=== PATIENT | female | born 1965 | race Caucasian/White ===

== ENCOUNTER 2018-12-25 22:06 | Emergency (ER) | payer OTHER ==
--- OUTSIDE RECORDS SUMMARY | 2018-12-25 22:08 | XMS REPORT | Continuity of Care Document ---
:1965 Author Organization Interface Problems Problem Status Onset Classification Date Comments Source Date Reported M54.12 - Active MH OPID "RADICULOPATHY 6 [facility] , CERVICAL [facility] REGION Foot-drop<sup> Active Problem 06/02/2016 Data migrated MH OPID 1</sup> 5 from [facility] Centricity on [facility] 04/04/15. Low back Active Problem 06/02/2016 Data migrated MH OPID pain<sup>2</granados 5 from [facility] p> Centricity on [facility] 04/04/15. Lumbar Active Problem 06/02/2016 Data migrated MH OPID radiculopathy< 5 from [facility] sup>3</sup> Centricity on [facility] 04/04/15. Tobacco Active Problem 06/02/2016 Data migrated MH OPID dependence 5 from [facility] syndrome<sup>4 Centricity on [facility] </sup> 04/04/15. Medications Medication Details Route Status Patient Ordering Order Source Instructions Provider Date Allergies, Adverse Reactions, Alerts Substance Category Reaction Severity Reaction Status Date Comments Source type Reported Immunizations Immunization Date Given Site Status Last Updated Comments Source Results Order Results Value Reference Date Interpretation Comments Source Name Range Spine Spine MRI CERVICAL SPINE WITHOUT CONTRAST 05/30 - OPID cervical cervical /2015 - [facility] contrast contrast MRI MRI TECHNIQUE: Multiplanar multisequence imaging of the cervical spine was performed without administration of intravenous gadolinium. Read by: Jono Harry MD Dictated Date/time: 05/31/16 07:50 Electronically Signed by: Jono Harry MD 05/31/16 09:57 FINAL REPORT COMPARISON: No prior exam. FINDINGS: Multilevel disc desiccation is seen. C1-C2 levels normal. C2-C3: Unremarkable. C3-C4: 1 mm disc bulge is seen without central canal stenosis. Left foraminal osteophytes are present with moderate left foraminal stenosis. C4-C5: Approximately 2 mm right asymmetric posterior disc osteophyte complex is seen, contacting the anterior cord margin without significant canal stenosis. Mild right facet osteoarthritis and right fo raminal osteophytes are present with moderate to severe right foraminal stenosis. C5-C6: 2.7 mm grade 1 retrolisthesis and 2 mm disc osteophyte complex with mild central canal stenosis. No cord indentation. Bilateral foraminal osteophytes and uncovertebral joint arthrosis with severe bilateral foraminal stenosis. C6-C7: 3.6 mm posterior disc osteophyte complex with mild central canal stenosis. No cord indentation. Severe bilateral foraminal stenosis. C7-T1: Unremarkable. The cervical cord signal is unremarkable without MRI evidence of myelomalacia. Left thyroid lobe 1.8 cm T2-weighted hyperintense signal lesion is present. IMPRESSION: 1. Multilevel disc degenerative disease and spondylosis. 2. Multilevel mild central canal stenosis. No cord indentation is identified. Normal cervical cord signal. 3. C3-C4 moderate left foraminal stenosis. C4-C5 moderate to severe right foraminal stenosis. C5-C6 and C6-C7 severe bilateral foraminal stenosis. 4. Left thyroid lobe 1.8 cm lesion. Thyroid ultrasound is recommended for further assessment. Spine Spine MRI of the spine without and with contrast 05/14 - [facility] lumbar lumbar /2016 - [facility] w/ w/ City contrast contrast MRI MRI COMPARISON: 01/11/2015 MRI exam. Read by: Jono Harry MD Dictated Date/time: 05/14/16 13:23 Electronically Signed by: Jono Harry MD 05/14/16 14:41 FINAL REPORT TECHNIQUE: Sagittal T1, sagittal T2 with fat saturation, axial T1 and axial T2 images were obtained. Intravenous gadolinium was given. FINDINGS: The paravertebral soft tissues are normal. The conus medullaris terminates at the L1 level. Stable mild dextrocurvature. T11-T12 stable disc narrowing and right paracentral disc osteophyte complex with protrusion measuring 3 mm is stable with mild central canal stenosis. No significant mass effect on the spinal cord. T12-L1: Unremarkable. L1-L2: Unremarkable. L2-L3: No central canal stenosis. Minimal right foraminal stenosis due to disc bulge encroachment. L3-L4: Stable left subarticular recess and foraminal disc protrusion measuring 5 mm AP dimension with left lateral recess stenosis and mass effect on the left L4 descending nerve root. Mild central slava l stenosis is present. Stable moderate to severe left foraminal stenosis. Stable moderate disc desiccation and disc narrowing. L4-L5: Stable moderate disc desiccation and disc narrowing. Right laminotomy changes are present without pseudomeningocele. Stable right asymmetric posterior disc osteophyte complex measuring 4.7 mm AP dimension is seen with mild right lateral recess stenosis and minimal mass effect on the right L5 descending nerve root. Stable moderate to severe right foraminal stenosis. Minimal right lateral epidura l enhancement due to granulation tissue is seen without mass effect. L5-S1: Unremarkable. IMPRESSION: 1. Stable L3-L4 and L4-L5 disc degenerative disease with respective lateral recess stenosis and mass effect on the left L4 and right L5 descending nerve roots, and corresponding moderate to severe foraminal stenosis. 2. Stable L4-L5 postsurgical changes. Stable T11-T12 right paracentral disc osteophyte complex. Vital Signs Vital Sign Value Date Comments Source Encounters Location Location Encounter Encounter Reason Attending ADM DC Status Source Details Type Number For Provider Date Date Visit [facility] Outpt Diag [id number] [place] 01/11 01/12 [facility] /2014 [facility] Outpt Diag [id number] [place] 05/14 05/15 [facility] /2015 [facility] Outpt Diag [id number] [place] 05/30 05/31 [facility] /2015 [facility] Procedures Procedure Code Date Perfomer Comments Source
--- OUTSIDE RECORDS SUMMARY | 2018-12-25 22:09 | XMS REPORT ---
:1965 Author Organization [facility] Address [address] [place], [place] [address]duran Jamil [address] [place] [id number] Care Team Providers Name Role Phone Unavailable Unavailable Unavailable Problems This patient has no known problems. Allergies, Adverse Reactions, Alerts This patient has no known allergies or adverse reactions. Medications This patient has no known medications.
--- NOTE | 2018-12-25 22:49 | RAD REPORT ---
EXAM DESCRIPTION: Cathy Single View12/25/2018 10:41 pm CLINICAL HISTORY: Chest pain COMPARISON: 2017 FINDINGS: The lungs appear clear of acute infiltrate. The heart is normal size. Right hemidiaphragm remains elevated IMPRESSION: No acute abnormalities displayed
[2018-12-25 23:32] LABS: Absolute Lymphocytes (CBC) 3.2 K/uL (0.7-4.9); Absolute Monocytes 0.4 K/uL (0.1-1.3); Absolute Neutrophil 3.5 K/uL (1.8-8.0); Basophils % 0.7 % (0-1.3); Eosinophils % 2.5 % (0-4.4); Hematocrit 43.2 % (36.0-45.0); Lymphocytes % 43.5 % (15.3-44.8); MPV 9.4 fL (7.6-11.3); RBC Red Blood Cell Count 5.12 M/uL (3.86-4.86)
[2018-12-25 23:37] LABS: Protime INR 1.02
[2018-12-25 23:53] LABS: ALT/SGPT 36 U/L (12-78); AST/SGOT 23 U/L (15-37); Albumin 3.5 g/dL (3.4-5.0); Alkaline Phosphatase 115 U/L (45-117); BUN Blood Urea Nitrogen 25 mg/dL (7-18); Bicarbonate 29 mmol/L (21-32); Bilirubin Direct 0.1 mg/dL (0-0.2); Bilirubin Total 0.4 mg/dL (0.2-1.0); Glucose Level 166 mg/dL (74-106); Magnesium 2.1 mg/dL (1.8-2.4); NT PRO-BNP 63 pg/mL (<125); Protein, Total 7.4 g/dL (6.4-8.2); Sodium Level 136 mmol/L (136-145); Troponin (Emerg Dept Use Only) < 0.02 ng/mL (0.0-0.045)
[2018-12-26] MEDS ORDERED: NA CHLORIDE 0.9% 1,000 ML ONE ×2 (00:02→00:48)
--- NOTE | 2018-12-26 02:25 | ER ---
Nurse's Notes [facility] [place], [place] Name: Jada Mitchell Age: 53 yrs Sex: Female : 1965 Arrival Date: 12/25/2018 Time: 22:15 Bed 25 Private MD: Diagnosis: Dehydration;Syncope and collapse Presentation: 12/25 22:16 Presenting complaint: EMS states: patient had syncopal episode, was lying on the ground mg2 when we reached the scene. BP was 80/ 60 initially and went up to 120/70, she was pale, diaphoretic, weak, reported 5 episodes of vomiting and diarrhea with abdominal and back pain for several days. BGL -158 mg/dl. Transition of care: patient was not received from another setting of care. Onset of symptoms was December 2018. Risk Assessment: Do you want to hurt yourself or someone else? Patient reports no desire to harm self or others. Initial Sepsis Screen: Does the patient meet any 2 criteria? No. Patient's initial sepsis screen is negative. Does the patient have a suspected source of infection? No. Patient's initial sepsis screen is negative. Care prior to arrival: None. 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 - Post-menopause mg2 Historical: - Allergies: 22:23 No Known Allergies; mg2 - Home Meds: 12/26 00:05 Ativan 2 mg Oral tab [Active]; Diflucan 100 mg Oral tab [Active]; ls4 hydrocodone-acetaminophen 10-325 mg/15 mL(15 mL) Oral soln [Active]; oxycodone 15 mg oral tab 1 tab 3 x per day [Active]; Lyrica 150 mg Oral 3 times per day [Active]; montelukast 10 mg oral tab 1 tab once daily [Active]; tizanidine 4 mg oral cap 1 cap 2 x per day [Active]; Xarelto 20 mg Oral tab once daily [Active]; Requip 2 mg oral tab 1 tab bedtime [Active]; Zofran (as hydrochloride) 4 mg oral tab as needed [Active]; Lamisil 250 mg oral tab 1 tab once daily [Active]; Magnesium Oxide Oral as needed [Active]; Tresiba FlexTouch U-100 100 unit/mL (3 mL) subcutaneous inpn 60 units daily [Active]; promethazine 25 mg Oral tab 1 tab every 6 hours [Active]; metoprolol tartrate 50 mg Oral tab 1 tab 2 times per day [Active]; alpha lipoic acid 200 mg oral tab twice a day [Active]; Symbicort 160-4.5 mcg/actuation inhalation HFAA 2 times per day [Active]; ProAir HFA 90 mcg/actuation inhalation HFAA 1 puff 3 times prn [Active]; Novolog Fast acting Sub-Q [Active]; - PMHx: 12/25 22:23 Diabetes - IDDM; DVT; pulmonary embolus; e coli; Hypertension; mg2 - PSHx: 22:23 back, leg, knee, ankle surgery; mg2 - Immunization history:: Flu vaccine is up to date. - Social history:: Smoking status: Patient uses tobacco products, smokes one-half pack cigarettes per day, Patient/guardian denies using alcohol, street drugs, IV drugs. - Ebola Screening: : No symptoms or risks identified at this time. Screenin:34 Abuse screen: Denies threats or abuse. Denies injuries from another. Nutritional ls4 screening: No deficits noted. Tuberculosis screening: No symptoms or risk factors identified. Fall Risk None identified. Assessment: 22:34 General: Appears in no apparent distress. Behavior is calm, cooperative. ls4 Cardiovascular: Reports fatigue, nausea, syncope. Respiratory: Airway is patent Respiratory effort is even, unlabored. Derm: Skin is clammy, Skin is pale. 12/26 00:07 Reassessment: Patient and/or family updated on plan of care and expected duration. Pain ls4 level reassessed. Patient is alert, oriented x 3, equal unlabored respirations, skin warm/dry/pink. 01:42 Reassessment: patient sleeping on bed. mg2 02:29 Reassessment: Patient appears in no apparent distress at this time. Patient and/or wh family updated on plan of care and expected duration. Pain level reassessed. Patient is alert, oriented x 3, equal unlabored respirations, skin warm/dry/pink. Pain: Denies pain. Vital Signs: 12/25 22:18 BP 135 / 80; Pulse 80; Resp 18; Temp 98.7; Pulse Ox 100% on R/A; Weight 74.84 kg; mg2 Height 5 ft. 10 in. (177.80 cm); Pain 8/10; 23:30 BP 133 / 83 Supine; Pulse 78; Pulse Ox 99% on R/A; ls4 23:33 BP 79 / 55; Pulse 85; Resp 20; Pulse Ox 99% on R/A; ls4 0518 00:06 BP 135 / 88; Pulse 84; Resp 16; Pulse Ox 95% on R/A; ls4 00:27 BP 138 / 80; Pulse 81; Resp 18; Pulse Ox 95% on R/A; mg2 01:49 BP 138 / 75 LA Supine (auto/reg); Pulse 81; Resp 18; Pulse Ox 98% on R/A; mg2 01:49 BP 125 / 75 LA Sitting (auto/reg); Pulse 84; Resp 18; Pulse Ox 98% on R/A; mg2 01:49 BP 89 / 60 LA Standing (auto/reg); Pulse 100; Resp 18; Pulse Ox 100% on R/A; mg2 02:20 BP 99 / 67 Standing; Pulse 100; Resp 18; Pulse Ox 98% on R/A; wh 02:52 BP 109 / 72 Standing; Pulse 96; Resp 18; Pulse Ox 98% on R/A; wh 12/25 22:18 Body Mass Index 23.67 (74.84 kg, 177.80 cm) mg2 ED Course: 12/25 22:15 Patient arrived in ED. mg2 22:16 EKG done, by ED staff. ls4 22:18 Triage completed. mg2 22:20 Ayleen Ortega, RN is Primary Nurse. ls4 22:33 Patient has correct armband on for positive identification. Placed in gown. Bed in low ls4 position. Call light in reach. Side rails up X 1. residential monitor on. Pulse ox on. NIBP on. Verbal reassurance given. 22:36 No provider procedures requiring assistance completed. ls4 22:36 Arm band placed on. ls4 22:41 XRAY Chest (1 view) In Process Unspecified. EDMS 22:58 Vivek Rutherford NP is PHCP. pm1 22:58 Jovanni Braswell MD is Attending Physician. pm1 23:27 Initial lab(s) drawn, by nm, sent to lab. Flu and/or RSV swab sent to lab. Strep swab lt1 sent to lab. Inserted saline lock: 22 gauge in right antecubital area, using aseptic technique. 23:29 Strep Sent. lt1 23:29 Flu Sent. lt1 23:30 ETOH Level Sent. lt1 23:53 CT completed. Patient tolerated procedure well. Patient moved to CT via stretcher. Patient moved back from CT. 12/26 00:01 CT Head Brain wo Cont In Process Unspecified. EDDE 02:54 IV discontinued, intact, bleeding controlled, No redness/swelling at site. Administered Medications: 12/25 23:55 Drug: NS 0.9% 1000 ml Route: IV; Rate: 1000 ml; Site: right antecubital; mg2 12/26 02:54 Follow up: Response: No adverse reaction; IV Status: Completed infusion 00:39 Drug: NS 0.9% 1000 ml Route: IV; Rate: 1000 ml; Site: right antecubital; mg2 02:54 Follow up: Response: No adverse reaction; IV Status: Completed infusion Outcome: 02:24 Discharge ordered by MD. pm1 02:53 Discharged to home ambulatory, with family. 02:53 Condition: good 02:53 Discharge instructions given to patient, Instructed on discharge instructions, follow up and referral plans. POC Dehydration Demonstrated understanding of instructions, follow-up care, POC 02:55 Patient left the ED. Signatures: Dispatcher [employer] EDMS Chano Smith Vivek Rutherford, BAKELITE MOLDER BAKELITE MOLDER pm1 Murtaza Tiwari Hever Ortega RN RN mg2 Ayleen Ortega RN RN ls4 Cely Still lt1 Corrections: (The following items were deleted from the chart) 02:52 02:52 BP 109 / 72; Pulse 96bpm; Resp 18bpm; Pulse Ox 98% RA; [facility]
--- NOTE | 2018-12-26 02:25 | EDPHYS ---
Physician Documentation [facility] Name: Jada Mitchell Age: 53 yrs Sex: Female : 1965 Arrival Date: 12/25/2018 Time: 22:15 Bed 25 Private MD: ED Physician Jovanni Braswell HPI: 12/25 23:05 This 53 yrs old Female presents to ER via EMS with complaints of Syncope. pm1 23:05 The patient has experienced syncope, collapsed. Onset: The symptoms/episode pm1 began/occurred just prior to arrival. Duration: The patient has had multiple episodes, two times at home prior to arrival. Context: the episode(s) was witnessed, by family, daughter, occurred at home, occurred while the patient was walking, Just prior to the episode the patient experienced no apparent symptoms. Associated injury: The patient did not suffer any apparent associated injury. Associated signs and symptoms: Pertinent negatives: abdominal pain, diarrhea, dizziness, headache, numbness, tingling, vomiting. The patient has not recently seen a physician. Patient has felt flu like symptoms for the past 2-3 days and reports decreased appetite and fluid consumption. 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-menopause mg2 Historical: - Allergies: 22:23 No Known Allergies; mg2 - Home Meds: 12/26 00:05 Ativan 2 mg Oral tab [Active]; Diflucan 100 mg Oral tab [Active]; ls4 hydrocodone-acetaminophen 10-325 mg/15 mL(15 mL) Oral soln [Active]; oxycodone 15 mg oral tab 1 tab 3 x per day [Active]; Lyrica 150 mg Oral 3 times per day [Active]; montelukast 10 mg oral tab 1 tab once daily [Active]; tizanidine 4 mg oral cap 1 cap 2 x per day [Active]; Xarelto 20 mg Oral tab once daily [Active]; Requip 2 mg oral tab 1 tab bedtime [Active]; Zofran (as hydrochloride) 4 mg oral tab as needed [Active]; Lamisil 250 mg oral tab 1 tab once daily [Active]; Magnesium Oxide Oral as needed [Active]; Tresiba FlexTouch U-100 100 unit/mL (3 mL) subcutaneous inpn 60 units daily [Active]; promethazine 25 mg Oral tab 1 tab every 6 hours [Active]; metoprolol tartrate 50 mg Oral tab 1 tab 2 times per day [Active]; alpha lipoic acid 200 mg oral tab twice a day [Active]; Symbicort 160-4.5 mcg/actuation inhalation HFAA 2 times per day [Active]; ProAir HFA 90 mcg/actuation inhalation HFAA 1 puff 3 times prn [Active]; Novolog Fast acting Sub-Q [Active]; - PMHx: 12/25 22:23 Diabetes - IDDM; DVT; pulmonary embolus; e coli; Hypertension; mg2 - PSHx: 22:23 back, leg, knee, ankle surgery; mg2 - Immunization history:: Flu vaccine is up to date. - Social history:: Smoking status: Patient uses tobacco products, smokes one-half pack cigarettes per day, Patient/guardian denies using alcohol, street drugs, IV drugs. - Ebola Screening: : No symptoms or risks identified at this time. ROS: 23:05 Constitutional: Negative for fever, chills, and weight loss, Eyes: Negative for injury, pm1 pain, redness, and discharge, ENT: Negative for injury, pain, and discharge, Neck: Negative for injury, pain, and swelling, Cardiovascular: Negative for chest pain, palpitations, and edema, Respiratory: Negative for shortness of breath, cough, wheezing, and pleuritic chest pain, Abdomen/GI: Negative for abdominal pain, nausea, vomiting, diarrhea, and constipation, Back: Negative for injury and pain, : Negative for injury, bleeding, discharge, and swelling, MS/Extremity: Negative for injury and deformity, Skin: Negative for injury, rash, and discoloration. 23:05 Neuro: Positive for syncope, Negative for headache, numbness, weakness. Exam: 23:05 Abdomen/GI: Inspection: abdomen appears normal, Bowel sounds: normal, Palpation: pm1 abdomen is soft and non-tender. 23:05 Constitutional: This is a well developed, well nourished patient who is awake, alert, and in no acute distress. Head/Face: Normocephalic, atraumatic. Eyes: Pupils equal round and reactive to light, extra-ocular motions intact. Lids and lashes normal. Conjunctiva and sclera are non-icteric and not injected. Cornea within normal limits. Periorbital areas with no swelling, redness, or edema. ENT: Nares patent. No nasal discharge, no septal abnormalities noted. Tympanic membranes are normal and external auditory canals are clear. Oropharynx with no redness, swelling, or masses, exudates, or evidence of obstruction, uvula midline. Mucous membranes moist. Neck: Trachea midline, no thyromegaly or masses palpated, and no cervical lymphadenopathy. Supple, full range of motion without nuchal rigidity, or vertebral point tenderness. No Meningismus. Chest/axilla: Normal chest wall appearance and motion. Nontender with no deformity. No lesions are appreciated. Cardiovascular: Regular rate and rhythm with a normal S1 and S2. No gallops, murmurs, or rubs. Normal PMI, no JVD. No pulse deficits. Respiratory: Lungs have equal breath sounds bilaterally, clear to auscultation and percussion. No rales, rhonchi or wheezes noted. No increased work of breathing, no retractions or nasal flaring. Abdomen/GI: Soft, non-tender, with normal bowel sounds. No distension or tympany. No guarding or rebound. No evidence of tenderness throughout. Back: No spinal tenderness. No costovertebral tenderness. Full range of motion. Skin: Warm, dry with normal turgor. Normal color with no rashes, no lesions, and no evidence of cellulitis. MS/ Extremity: Pulses equal, no cyanosis. Neurovascular intact. Full, normal range of motion. 23:05 Neuro: Orientation: is normal, Motor: is normal, moves all fours, strength is normal, strength is 5/5 in all extremities. Vital Signs: 22:18 BP 135 / 80; Pulse 80; Resp 18; Temp 98.7; Pulse Ox 100% on R/A; Weight 74.84 kg; mg2 Height 5 ft. 10 in. (177.80 cm); Pain 8/10; 23:30 BP 133 / 83 Supine; Pulse 78; Pulse Ox 99% on R/A; ls4 23:33 BP 79 / 55; Pulse 85; Resp 20; Pulse Ox 99% on R/A; ls4 05 00:06 BP 135 / 88; Pulse 84; Resp 16; Pulse Ox 95% on R/A; ls4 00:27 BP 138 / 80; Pulse 81; Resp 18; Pulse Ox 95% on R/A; mg2 01:49 BP 138 / 75 LA Supine (auto/reg); Pulse 81; Resp 18; Pulse Ox 98% on R/A; mg2 01:49 BP 125 / 75 LA Sitting (auto/reg); Pulse 84; Resp 18; Pulse Ox 98% on R/A; mg2 01:49 BP 89 / 60 LA Standing (auto/reg); Pulse 100; Resp 18; Pulse Ox 100% on R/A; mg2 02:20 BP 99 / 67 Standing; Pulse 100; Resp 18; Pulse Ox 98% on R/A; wh 02:52 BP 109 / 72 Standing; Pulse 96; Resp 18; Pulse Ox 98% on R/A; wh 12/25 22:18 Body Mass Index 23.67 (74.84 kg, 177.80 cm) mg2 MDM: 12/25 22:58 Patient medically screened. pm1 12/26 02:21 Data reviewed: vital signs. Data interpreted: Pulse oximetry: on room air is 100 %. pm1 Interpretation: normal. Refusal of service: The patient/guardian displays adequate decision making capability and despite a detailed discussion of alternatives, benefits, risks, and consequences refuses: Patient does not want to complete the second liter of fluids. Patient's orthostatic blood pressure have improved but patient needs additional fluids and repeat blood pressure readings to insure adequate hydration. Patient wants to go home and drink fluids. 12/25 22:33 Order name: CBC with Diff [facility] 12/25 22:33 Order name: Basic Metabolic Panel [facility] 12/25 22:33 Order name: LFT's; Complete Time: 00:00 [facility] 12/25 22:33 Order name: Magnesium; Complete Time: 00:00 [facility] 12/25 22:33 Order name: NT PRO-BNP; Complete Time: 00:00 [facility] 12/25 22:33 Order name: PT-INR; Complete Time: 23:50 [facility] 12/25 22:33 Order name: Troponin (emerg Dept Use Only); Complete Time: 00:00 [facility] 12/25 22:33 Order name: CBC with Automated Diff; Complete Time: 23:50 EDMS 12/25 22:33 Order name: Basic Metabolic Panel; Complete Time: 00:00 EDMS 12/25 23:15 Order name: ETOH Level; Complete Time: 00:00 pm1 12/25 23:15 Order name: Flu; Complete Time: 00:00 pm12/25 22:33 Order name: XRAY Chest (1 view); Complete Time: 23:15 [facility] 12/25 22:33 Order name: EKG; Complete Time: 22:34 [facility] 12/25 22:33 Order name: Cardiac monitoring; Complete Time: 22:33 [facility] 12/25 22:33 Order name: EKG - Nurse/Tech; Complete Time: :33 [facility] 12/25 22:33 Order name: IV Saline Lock; Complete Time: 23:30 [facility] 12/25 22:33 Order name: Labs collected and sent; Complete Time: 23:30 [facility] 12/25 22:33 Order name: O2 Per Protocol; Complete Time: :33 [facility] 12/25 22:33 Order name: O2 Sat Monitoring; Complete Time: 22:33 [facility] 12/25 23:15 Order name: CT Head Brain wo Cont 12/25 23:15 Order name: Strep; Complete Time: 00:00 12/25 23:15 Order name: [place] Screen Profile; Complete Time: 00:00 12/25 23:15 Order name: Orthostatic Blood Pressure; Complete Time: 23:31 pm12/25 23:52 Order name: Throat Culture EDMS Administered Medications: 12/25 23:55 Drug: NS 0.9% 1000 ml Route: IV; Rate: 1000 ml; Site: right antecubital; mg2 12/26 02:54 Follow up: Response: No adverse reaction; IV Status: Completed infusion 00:39 Drug: NS 0.9% 1000 ml Route: IV; Rate: 1000 ml; Site: right antecubital; mg2 02:54 Follow up: Response: No adverse reaction; IV Status: Completed infusion Disposition: 12/26/18 02:24 Discharged to Home. Impression: Dehydration, Syncope and collapse. - Condition is Stable. - Discharge Instructions: Dehydration, Adult, Syncope, Rehydration, Adult. - Medication Reconciliation Form, Thank You Letter, Antibiotic Education, Prescription Opioid Use form. - Follow up: Emergency Department; When: As needed; Reason: Worsening of condition. Follow up: Private Physician; When: 2 - 3 days; Reason: Recheck today's complaints, Continuance of care, Re-evaluation by your physician. - Problem is new. - Symptoms have improved. Addendum: 12/28/2018 06:43 Co-signature as Attending Physician, Jovanni Braswell MD I agree with the assessment and t w4 plan of care. Signatures: Dispatcher [employer] [facility] SangeetaVivek, FASHION COORDINATOR FASHION COORDINATOR pm1 Murtaza Tiwari Jovanni Braswell MD MD tw4 Hever Ortega, RN RN mg2 Ayleen Ortega RN RN ls4 Corrections: (The following items were deleted from the chart) 12/25 23:32 22:34 CBC+H.LAB.BRZ ordered. [facility] 12/26 02:55 02:24 12/26/2018 02:24 Discharged to Home. Impression: Dehydration; Syncope and wh collapse. Condition is Stable. Forms are Medication Reconciliation Form, Thank You Letter, Antibiotic Education, Prescription Opioid Use. Follow up: Emergency Department; When: As needed; Reason: Worsening of condition. Follow up: Private Physician; When: 2 - 3 days; Reason: Recheck today's complaints, Continuance of care, Re-evaluation by your physician. Problem is new. Symptoms have improved. pm1
[2018-12-26 05:03] VITALS: TEMP 98.7
[2018-12-26 05:11] VITALS: O2SAT 98
[2018-12-26 05:12] VITALS: BP 109/72
--- NOTE | 2018-12-26 14:25 | EKG ---
Test Date: 2018-12-25 Test Time: 22:16:23 Stock Preparation Operator: ANNABELLE MEASUREMENT RESULTS: Intervals: Rate: 77 DE: 182 QRSD: 118 QT: 402 QTc: 454 [place]: P: 60 DE: 182 QRS: 28 T: 60 INTERPRETIVE STATEMENTS: Normal sinus rhythm Possible Left atrial enlargement Incomplete right bundle branch block Anterior infarct, age undetermined Abnormal ECG Compared to ECG 01/28/2017 06:40:08 No significant changes Electronically Signed On 12-26-18 14:24:57 CDT by Martin Maguire
--- NOTE | 2018-12-28 13:37 | RAD REPORT ---
EXAM DESCRIPTION: CT - Head Brain Wo Cont - 12/26/2018 4:02 am CLINICAL HISTORY: 53 years Female, SYNCOPE TECHNIQUE: 5 mm axial images were obtained along with 3 mm reformatted coronal and sagittal images. This exam was performed according to our departmental dose-optimization program, which includes autom ated exposure control, adjustment of the mA and/or kV according to patient size and/or use of iterati ve reconstruction technique. Patient size and/or use of iterative reconstruction technique. COMPARISON: None. FINDINGS: No acute abnormal extracerebral fluid collections are demonstrated. The cortical sulci, ventricles, and cisterns are within normal limits. There are no areas of altered attenuation identified to suggest acute hemorrhage, infarction, or mass lesion. The visualized portions of the paranasal sinuses and mastoid air cells are clear. IMPRESSION: 1. Normal study. Electronically signed by: Fredo Hale MD 12/26/2018 12:02 AM CDT Due to temporary technical issues with the PACS/Fluency reporting system, reports are being signed by the in house radiologist as a courtesy to ensure prompt reporting. The interpreting radiologist is f ully responsible for the content of the report.
== END 2018-12-26 02:55 | disposition home or self-care (01) ==
LOC: ER 22:06
DX: E86.0 Dehydration (principal); I10 Essential (primary) hypertension; F17.210 Nicotine dependence, cigarettes, uncomplicated; E11.9 Type 2 diabetes mellitus without complications; Z79.01 Long term (current) use of anticoagulants; Z79.4 Long term (current) use of insulin; Z86.718 Personal history of other venous thrombosis and embolism
CPT/HCPCS: 96361; 93005; 87070; 85025; 80048; 36415; 80320; 83735; 86308; 85610; 80076; 87081; 84484; 83880; 87804 ×2; 70450; 71045; 96360; 99285; J7030

== ENCOUNTER 2020-05-03 03:34 | Inpatient (IN) | payer OTHER, BC ==
--- OUTSIDE RECORDS SUMMARY | 2020-05-03 03:37 | XMS REPORT | Continuity of Care Document ---
:1965 Author Organization [employer] Care Team Providers Name Role Phone [employer] Unavailable Un available Problems Problem Status Onset Classification Date Comments Sourc e Date Reported M54.12 - Active 05/21/20 OPID "RADICULOPATHY, 16 Dominic rial CERVICAL REGION [facility] Foot-drop Active 01/31/20 Problem 06/02/2016 Data migrated OP ID (finding) 15 from [facility] on [facility] 04/04/15. Low back pain Active 01/31/20 Problem 06/02/2016 Data migrated M H OPID (disorder) 15 from [facility] on [facility] 04/04/15. Lumbar Active 01/31/20 Problem 06/02/2016 [facility]. Tobacco Active 01/31/20 Problem 06/02/2016 Data migrated OP ID dependence 15 from [facility] 04/04/15. Medications No Data Provided for This Section Allergies, Adverse Reactions, Alerts No Known Medication Allergies Immunizations No Data Provided for This Section Results No Data Provided for This Section Pathology Reports No Data Provided for This Section Diagnostic Reports Report Value Date Source Spine cervical wo MRI CERVICAL SPINE WITHOUT CONTRAST 05/30/2016 [employer] contrast MRI TECHNIQUE: Multiplanar multi sequence imaging of the cervical spine was performed without administration of intravenous gadolinium. [place] COMPARISON: No prior exam. FINDINGS: Multilevel disc desiccation is seen. C1-C2 levels normal. C2-C3: Unremarkable. C3-C4: 1 mm disc bulge is se en without central canal stenosis. Left foraminal osteophytes are present with moderate left foraminal stenosis. C4-C5: Approximately 2 mm ri ght asymmetric posterior disc osteophyte complex is seen, contacting the anterior cord margin without significant canal stenosis. Mild right facet osteoarthritis and right fo raminal osteophytes are pres ent with moderate to severe right foraminal stenosis. C5-C6: 2.7 mm grade 1 retrol isthesis and 2 mm disc osteophyte complex with [...] myelomalacia. Left thyroid lobe 1.8 cm T2-weighted hyperintens e signal lesion is present. IMPRESSION: 1. Multilevel disc degenerative disease and spon dylosis. 2. Multilevel mild central c anal stenosis. No cord indentation is identified. Normal cervical cord signal. 3. C3-C4 moderate left estephanie inal stenosis. C4-C5 moderate to severe right foraminal stenosis. C5-C6 and C6-C7 severe bilateral foraminal stenosis. 4. Left thyroid lobe 1.8 cm lesion. Thyroid ultrasound is recommended for further assessment. Spine lumbar w/wo MRI of the spine without and with contrast 11/2015 [facility] contrast MRI COMPARISON: 01/11/2015 MRI exam. [place] TECHNIQUE: Sagittal T1, sagi ttal T2 with fat saturation, axial T1 and axial T2 images were obtained. Intravenous gadolinium was given. FINDINGS: The paravertebral soft tissues are normal. The conus medullaris terminates at the L1 level. Stable mild dextrocurvature. T11-T12 stable disc narrowin g and right paracentral disc osteophyte complex with protrusion measuring 3 mm is stable with mild central canal stenosis. No significant mass effect on the spinal cord. T12-L1: Unremarkable. L1-L2: Unremarkable. L2-L3: No central canal sten osis. Minimal right foraminal stenosis due to disc bulge encroachment. L3-L4: Stable left subarticu lar recess and foraminal disc protrusion measuring 5 mm AP dimension with left lateral recess stenosis and mass effect on the left L4 descending nerve root. Mild central slava l stenosis is present. Stabl e moderate to severe left foraminal stenosis. Stable [...] Unremarkable. IMPRESSION: 1. Stable L3-L4 and L4-L5 di sc degenerative disease with respective lateral recess stenosis and mass effect on the left L4 and right L5 descending nerve roots, and corresponding moderate to severe foraminal stenosis. 2. Stable L4-L5 postsurgical changes. Stable T11-T12 right paracentral disc osteophyte complex. Consultation Notes No Data Provided for This Section Discharge Summaries No Data Provided for This Section History and Physicals No Data Provided for This Section Vital Signs No Data Provided for This Section Encounters Location Location Encounter Encounter Reason Attending ADM RI Stat Source Details Type Number For Provider Date Date Visit [facility] Outpt Diag [id number] [place] 01/11 01/12 [facility] /2014 [facility] Outpt Diag [id number] [place] 05/14 05/15 [facility] /2015 [facility] Outpt Diag [id number] [place] 05/30 05/31 [facility] Outpatient Services [facility] /2015 [facility] Procedures No Data Provided for This Section Assessment and Plan No Data Provided for This Section Plan of Care No Data Provided for This Section Social History Social History Date Source No data available for this 05/31/2016 OPID [facility] section Family History No Data Provided for This Section Advance Directives No Data Provided for This Section Functional Status No Data Provided for This Section
--- OUTSIDE RECORDS SUMMARY | 2020-05-03 03:37 | XMS REPORT | Continuity of Care Document ---
:1965 Author Organization [facility] t Address [address] [place] [address] Care Team Providers Name Role Phone Harlan Butt Jr Attending Clinician Problems Condition Condition Condition Status Onset Resolution Last Treating Co mments Source Name Details Category Date Date Treatment Clinician Date M54.12 - Diagnosis Active 2015-082016-05-30 M emoria "RADICULOP 0-11 18:25:00 l ATHY, M54.12 - 00:01: [place] CERVICAL "RADICULOP 00 REGION ATHY, CERVICAL REGION Active 05/21/2016 [facility] Foot-drop Problem Active 2016-06-02 Me moria (finding) 01-30 00:59:34 l 00:00: Epi Foot-drop 00 (finding) Active 01/30/2015 Problem 06/02/2016 Data migrated from [facility] on 04/04/15. [facility] Low back Problem Active 2016-06-02 Mem oria pain 01-30 00:59:34 l (disorder) Low back 00:00: He rmann pain 00 (disorder) Active 01/30/2015 Problem 06/02/2016 Data migrated from [facility] on 04/04/15. [facility] Lumbar Problem Active 2016-06-02 Memor ia radiculopa 01-30 00:59:34 l thy Lumbar 00:00: [place] (disorder) radiculopa 00 thy (disorder) Active 01/30/2015 Problem 06/02/2016 Data migrated from [facility] on 04/04/15. [facility] Tobacco Problem Active 2016-06-02 Dominic sameera dependence 01-30 00:59:34 l syndrome Tobacco 00:00: Codie nn (disorder) dependence 00 syndrome (disorder) Active 01/30/2015 Problem 06/02/2016 Data migrated from [facility] on 04/04/15. MELISSA HEIN [facility] Allergies, Adverse Reactions, Alerts This patient has no known allergies or adverse reactions. Social History Social Habit Start Date Stop Date Quantity Comments Source Social History 2016-05-31 2016-05-31 [facility] 04:59:00 04:59:00 Medications This patient has no known medications. Procedures This patient has no known procedures. Encounters Start End Encounter Admission Attending Care Care Encounter Source Date/Time Date/Time Type Type Clinicians Facility Department ID 2016-05-30 2016-05-30 Outpatient Filomena, [id number] 18:14:00 23:59:00 Harlan Boucher [id number] 5.30 2016-05-14 2016-05-14 Outpatient Filomena, [id number] 07:57:00 23:59:00 Harlan Boucher [id number] 5.30 2015-01-11 2015-01-11 Outpatient BHAVESH Butt [id number] 17:11:00 23:59:00 Harlan Boucher 00 Results This patient has no known results.
[2020-05-03 03:57] LABS: Absolute Lymphocytes (CBC) 2.6 K/uL (0.7-4.9); Basophils % 0.8 % (0-1.3); Hematocrit 36.7 % (36.0-45.0); RBC Red Blood Cell Count 4.19 M/uL (3.86-4.86)
[2020-05-03 04:01] LABS: Protime INR 0.86
[2020-05-03] MEDS ORDERED: NA CHLORIDE 0.9% 0 ML ONE (04:02)
[2020-05-03] MEDS ORDERED: ONDANSETRON 4 MG/2 ML VIAL ONE ×2 (04:02→14:25)
[2020-05-03] MEDS ORDERED: NA CHLORIDE 0.9% 2,000 ML ONE (04:08)
[2020-05-03 04:15] LABS: Arterial Blood Carboxyhemoglob 1.1 % (0-1.5); Blood Gas Oxyhemoglobin 94.2 % (94-97); Blood O2 Saturation 96.2 % (92-98.5)
[2020-05-03 04:17] LABS: ALT/SGPT 20 U/L (12-78); AST/SGOT 9 U/L (15-37); Alkaline Phosphatase 131 U/L (45-117); BUN Blood Urea Nitrogen 35 mg/dL (7-18); Bicarbonate 15 mmol/L (21-32); Bilirubin Direct < 0.1 mg/dL (0-0.2); Bilirubin Total 0.4 mg/dL (0.2-1.0); Glucose Level 342 mg/dL (74-106); Magnesium 2.3 mg/dL (1.8-2.4); NT PRO-BNP 145 pg/mL (<125); Potassium 5.2 mmol/L (3.5-5.1); Protein, Total 7.3 g/dL (6.4-8.2); Sodium Level 133 mmol/L (136-145); Troponin (Emerg Dept Use Only) < 0.02 ng/mL (0.0-0.045)
--- NOTE | 2020-05-03 04:28 | ER ---
Nurse's Notes [facility] Name: Jada Navarro Age: 54 yrs Sex: Female : 1965 Arrival Date: 05/03/2020 Time: 03:39 Bed 3 Private MD: Diagnosis: Diabetes mellitus due to underlying condition with ketoacidosis without coma;Weakness;Vomiting;Hyperkalemia;Acute kidney failure-on chronic renal failure Presentation: 05/03 03:40 Chief complaint: EMS states: they were toned out for report of pt with malaise and bb nausea and vomiting x 3 days pt is diabetic she has been taking phenergan and zofran at home for the vomiting, pt also c/o chest pain. Coronavirus screen: At this time, the client does not indicate any symptoms associated with coronavirus-19. Ebola Screen: No symptoms or risks identified at this time. Initial Sepsis Screen: Does the patient meet any 2 criteria? No. Patient's initial sepsis screen is negative. Does the patient have a suspected source of infection? No. Patient's initial sepsis screen is negative. Risk Assessment: Do you want to hurt yourself or someone else? Patient reports no desire to harm self or others. Onset of symptoms was April 30, 2020. Care prior to arrival: Medication(s) given: Normal saline infusion, Nitroglycerin, x 1, zofran 4 mg, IV initiated. 20 GA, in the right antecubital area, Glucose check: 350. 03:40 Method Of Arrival: EMS: [facility] bb 03:40 Acuity: LEE 3 bb Triage Assessment: 03:52 General: Appears uncomfortable, Behavior is listless. Pain: Complains of pain in chest. bb Neuro: Level of Consciousness is awake, alert, obeys commands, Oriented to person, place, time, situation. UNIFORM ATTENDANT: 03:52 LMP N/A - bb Historical: - Allergies: 03:52 No Known Allergies; bb - Home Meds: 03:52 Ativan 2 mg Oral tab 1.5 tab 2 times per day [Active]; metoprolol tartrate 50 mg Oral bb tab 1 tab 2 times per day [Active]; montelukast 10 mg Oral tab 1 tab once daily [Active]; ProAir HFA 90 mcg/actuation inhalation HFAA 1 puff 3 times prn [Active]; Symbicort 160-4.5 mcg/actuation inhalation HFAA 2 times per day [Active]; Novolog Fast acting Sub-Q [Active]; Xarelto 20 mg Oral tab once daily [Active]; Zofran (as hydrochloride) 4 mg Oral tab as needed [Active]; oxycodone 15 mg Oral tab 1 tab every 6 hours [Active]; pregabalin 150 mg Oral 3 times per day [Active]; duloxetine 60 mg oral cpDR 1 cap once daily [Active]; cyclobenzaprine 5 mg Oral tab 1 tab daily [Active]; ropinirole 2 mg oral tab nightly [Active]; atorvastatin 40 mg oral tab 1 tab once daily [Active]; - PMHx: 03:52 Diabetes - IDDM; DVT; e coli; Hypertension; pulmonary embolus; bb - PSHx: 03:52 back, leg, knee, ankle surgery; bb - Immunization history:: Adult Immunizations unknown. - Social history:: Smoking status: Patient reports the use of cigarette tobacco products, denies chronic smoking, but will smoke occasionally, Patient/guardian denies using alcohol, street drugs. - Family history:: not pertinent. Screenin:53 Abuse screen: Denies threats or abuse. Nutritional screening: No deficits noted. bb Tuberculosis screening: No symptoms or risk factors identified. Fall Risk None identified. Vital Signs: 03:40 BP 148 / 87; Pulse 104; Resp 20 S; Temp 98.5(O); Pulse Ox 98% on R/A; Weight 77.11 kg bb (R); Height 5 ft. 10 in. (177.80 cm) (R); 04:00 BP 142 / 89; Pulse 108; Resp 17; Pulse Ox 99% on R/A; rv 05:00 BP 140 / 69; Pulse 119; Resp 14; Pulse Ox 96% on R/A; rv 06:01 BP 140 / 73; Pulse 117; Resp 14; Pulse Ox 96% on R/A; rv 03:40 Body Mass Index 24.39 (77.11 kg, 177.80 cm) bb ED Course: 03:39 Patient arrived in ED. bb 03:39 Spencer Alcantar MD is Attending Physician. ottoniel 03:43 Triage completed. bb 03:45 Initial lab(s) drawn, by ED staff, sent to lab. EKG done, by ED staff, reviewed by scout Alcantar MD. 03:48 Helio Peña, RN is Primary Nurse. rv 03:52 Arm band placed on Patient placed in an exam room, on a stretcher, on hebrew teacher, bb on pulse oximetry. EKG completed in triage. Results shown to MD. 03:53 Patient has correct armband on for positive identification. Bed in low position. Call bb light in reach. Side rails up X2. senior regulatory affairs specialist on. Pulse ox on. NIBP on. Warm blanket given. 03:53 Maintain EMS IV. Site clean \T\ dry. Gauge \T\ site: 20 g R AC. bb 04:24 XRAY Chest (1 view) In Process Unspecified. EDMS 04:25 Shital Orozco MD is Hospitalizing Provider. ottoniel 06:00 No provider procedures requiring assistance completed. IV is patent, with fluids rv infusing freely, with good blood return, Patient admitted, IV remains in place. Administered Medications: 03:55 Drug: NS 0.9% 1000 ml Route: IV; Rate: 1 bolus; Site: right antecubital; rv 06:00 Follow up: IV Status: Completed infusion; IV Intake: 1000ml rv 03:55 Drug: NS 0.9% 1000 ml Route: IV; Rate: 1 bolus; Site: right antecubital; rv 06:00 Follow up: IV Status: Completed infusion; IV Intake: 1000ml rv 03:56 Not Given (Duplicate Order): Zofran (Ondansetron) 4 mg IVP once; over 2 minutes ottoniel 04:30 Drug: Pepcid 20 mg Route: IVP; Site: right antecubital; sg 06:00 Follow up: Response: No adverse reaction rv 04:51 Drug: Insulin Drip - (Insulin Regular Human 100 units, NS 0.9% 100 ml) {Co-Signature: sg rv (Helio Peña RN).} Route: IV; Rate: 4 units/hr; Site: right antecubital; 06:00 Follow up: IV Status: Infusion continued upon admission rv Intake: 06:00 IV: 1000ml; Total: 1000ml. rv 06:00 IV: 1000ml; Total: 2000ml. rv Outcome: 04:27 Decision to Hospitalize by Provider. ottoniel 06:01 Admitted to ER Hold. Please see [facility] for further documentation. rv 06:01 Condition: stable 09:24 Patient left the ED. Signatures: Dispatcher [employer] EDJono Nieves, FISH RN Spencer Foss MD MD cha Ballard, Brenda, RN RN Katelyn Mena RN RN ss Helio Peña RN RN rv Helio Peña RN rv
--- NOTE | 2020-05-03 04:28 | EDPHYS ---
Physician Documentation [facility] Name: Jada Navarro Age: 54 yrs Sex: Female : 1965 Arrival Date: 05/03/2020 Time: 03:39 Bed 3 Private MD: ED Physician Spencer Alcantar HPI: 05/03 04:02 This 54 yrs old Female presents to ER via EMS with complaints of General ottoniel Weakness. 04:02 The patient presents to the emergency department with nausea, vomiting, that is ottoniel continuous. Onset: The symptoms/episode began/occurred 2 day(s) ago. Possible causes: hx dka. The symptoms are aggravated by nothing. The symptoms are alleviated by nothing. The patient or guardian reports hyperglycemia, that was potentially precipitated by no particular event. Associated signs and symptoms: Pertinent positives: nausea, vomiting. hx of dka, nausea and vomiting x 2 days. 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 - bb Historical: - Allergies: 03:52 No Known Allergies; bb - Home Meds: 03:52 Ativan 2 mg Oral tab 1.5 tab 2 times per day [Active]; metoprolol tartrate 50 mg Oral bb tab 1 tab 2 times per day [Active]; montelukast 10 mg Oral tab 1 tab once daily [Active]; ProAir HFA 90 mcg/actuation inhalation HFAA 1 puff 3 times prn [Active]; Symbicort 160-4.5 mcg/actuation inhalation HFAA 2 times per day [Active]; Novolog Fast acting Sub-Q [Active]; Xarelto 20 mg Oral tab once daily [Active]; Zofran (as hydrochloride) 4 mg Oral tab as needed [Active]; oxycodone 15 mg Oral tab 1 tab every 6 hours [Active]; pregabalin 150 mg Oral 3 times per day [Active]; duloxetine 60 mg oral cpDR 1 cap once daily [Active]; cyclobenzaprine 5 mg Oral tab 1 tab daily [Active]; ropinirole 2 mg oral tab nightly [Active]; atorvastatin 40 mg oral tab 1 tab once daily [Active]; - PMHx: 03:52 Diabetes - IDDM; DVT; e coli; Hypertension; pulmonary embolus; bb - PSHx: 03:52 back, leg, knee, ankle surgery; bb - Immunization history:: Adult Immunizations unknown. - Social history:: Smoking status: Patient reports the use of cigarette tobacco products, denies chronic smoking, but will smoke occasionally, Patient/guardian denies using alcohol, street drugs. - Family history:: not pertinent. ROS: 04:02 Constitutional: Negative for fever, chills, and weight loss, Eyes: Negative for injury, ottoniel pain, redness, and discharge, ENT: Negative for injury, pain, and discharge, Neck: Negative for injury, pain, and swelling, Cardiovascular: Negative for chest pain, palpitations, and edema, Respiratory: Negative for shortness of breath, cough, wheezing, and pleuritic chest pain, Back: Negative for injury and pain, : Negative for injury, bleeding, discharge, and swelling, MS/Extremity: Negative for injury and deformity, Skin: Negative for injury, rash, and discoloration, Neuro: Negative for headache, weakness, numbness, tingling, and seizure, Psych: Negative for depression, anxiety, suicide ideation, homicidal ideation, and hallucinations, Allergy/Immunology: Negative for hives, rash, and allergies, Endocrine: Negative for neck swelling, polydipsia, polyuria, polyphagia, and marked weight changes. 04:02 Abdomen/GI: Positive for nausea and vomiting, abdominal cramps. Exam: 03:56 ECG was reviewed by the Attending Physician. ottoniel 04:02 Constitutional: This is a well developed, well nourished patient who is awake, alert, ottoniel and in no acute distress. Head/Face: Normocephalic, atraumatic. Eyes: Pupils equal round and reactive to light, extra-ocular motions intact. Lids and lashes normal. Conjunctiva and sclera are non-icteric and not injected. Cornea within normal limits. Periorbital areas with no swelling, redness, or edema. ENT: Nares patent. No nasal discharge, no septal abnormalities noted. Tympanic membranes are normal and external auditory canals are clear. Oropharynx with no redness, swelling, or masses, exudates, or evidence of obstruction, uvula midline. Mucous membranes moist. Neck: Trachea midline, no thyromegaly or masses palpated, and no cervical lymphadenopathy. Supple, full range of motion without nuchal rigidity, or vertebral point tenderness. No Meningismus. Chest/axilla: Normal chest wall appearance and motion. Nontender with no deformity. No lesions are appreciated. Respiratory: Lungs have equal breath sounds bilaterally, clear to auscultation and percussion. No rales, rhonchi or wheezes noted. No increased work of breathing, no retractions or nasal flaring. Back: No spinal tenderness. No costovertebral tenderness. Full range of motion. Female : Normal external genitalia. Skin: Warm, dry with normal turgor. Normal color with no rashes, no lesions, and no evidence of cellulitis. MS/ Extremity: Pulses equal, no cyanosis. Neurovascular intact. Full, normal range of motion. Neuro: Awake and alert, GCS 15, oriented to person, place, time, and situation. Cranial nerves II-XII grossly intact. Motor strength 5/5 in all extremities. Sensory grossly intact. Cerebellar exam normal. Normal gait. 04:02 Cardiovascular: Rate: bradycardic, Rhythm: regular, Pulses: Pulses are 4+ in bilateral radial, brachial, femoral, popliteal, posterior tibial and and dorsalis pedis arteries.. Heart sounds: normal, normal S1and S2, no S3 or S4, no murmur, no rub, no gallop, Edema: is not appreciated, JVD: is not appreciated. 04:02 Abdomen/GI: Inspection: abdomen appears normal, Bowel sounds: normal, Palpation: abdomen is soft and non-tender, Liver: no appreciated palpable abnormalities, Hernia: not appreciated. Vital Signs: 03:40 BP 148 / 87; Pulse 104; Resp 20 S; Temp 98.5(O); Pulse Ox 98% on R/A; Weight 77.11 kg bb (R); Height 5 ft. 10 in. (177.80 cm) (R); 04:00 BP 142 / 89; Pulse 108; Resp 17; Pulse Ox 99% on R/A; rv 05:00 BP 140 / 69; Pulse 119; Resp 14; Pulse Ox 96% on R/A; rv 06:01 BP 140 / 73; Pulse 117; Resp 14; Pulse Ox 96% on R/A; rv 03:40 Body Mass Index 24.39 (77.11 kg, 177.80 cm) MDM: 03:39 Patient medically screened. ottoniel 04:07 Differential diagnosis: Nonspecific abd pain, gastritis, cholecystitis, pancreatitis, ottoniel viral gastroenteritis, gastroenteritis, DKA, hyperglycemia, hyperthyroidism. Data reviewed: vital signs, nurses notes, diagnostic data from outside facility, lab test result(s), EKG, radiologic studies. Data interpreted: residential monitor: rate is 104 beats/min, Pulse oximetry: on room air is 98 %. Test interpretation: by ED physician or midlevel provider: ECG, plain radiologic studies. Counseling: I had a detailed discussion with the patient and/or guardian regarding: the historical points, exam findings, and any diagnostic results supporting the discharge/admit diagnosis, lab results, radiology results, the need for further work-up and treatment in the hospital. 05/03 03:42 Order name: Basic Metabolic Panel; Complete Time: 04: [facility] 05/03 03:42 Order name: CBC with Diff; Complete Time: : [facility] 05/03 03:42 Order name: LFT's; Complete Time: 04: [facility] 05/03 03:42 Order name: Magnesium; Complete Time: 04: [facility] 05/03 03:42 Order name: NT PRO-BNP; Complete Time: 04: [facility] 05/03 03:42 Order name: PT-INR; Complete Time: 04: [facility] 05/03 03:42 Order name: Troponin (emerg Dept Use Only); Complete Time: 04: [facility] 05/03 03:42 Order name: ABG; Complete Time: 04: [facility] 05/03 03:42 Order name: Blood Culture Adult (2) [facility] 05/03 03:42 Order name: Urine Culture [facility] 05/03 03:51 Order name: Glucose, Ancillary Testing; Complete Time: 03:56 [facility] 05/03 04:44 Order name: CBC with Automated Diff [facility] 05/03 04:44 Order name: Acetone Level [facility] 05/03 04:44 Order name: Acetone Level EDMS 05/03 04:44 Order name: Acetone Level EDMS 05/03 04:44 Order name: Acetone Level EDMS 05/03 04:44 Order name: Basic Metabolic Panel EDMS 05/03 04:44 Order name: Basic Metabolic Panel EDMS 05/03 04:44 Order name: Basic Metabolic Panel EDMS 05/03 04:44 Order name: Basic Metabolic Panel EDMS 05/03 04:44 Order name: CBC with Automated Diff EDMS 05/03 04:44 Order name: CBC with Automated Diff EDMS 05/03 04:44 Order name: CBC with Automated Diff EDMS 05/03 04:44 Order name: CBC with Automated Diff EDMS 05/03 04:44 Order name: Lipid Profile EDMS 05/03 04:44 Order name: Lipid Profile [facility] 05/03 04:44 Order name: Magnesium [facility] 05/03 04:44 Order name: Magnesium EDMS 05/03 04:44 Order name: Magnesium [facility] 05/03 04:44 Order name: Magnesium [facility] 05/03 03:42 Order name: XRAY Chest (1 view) [facility] 05/03 03:42 Order name: EKG; Complete Time: 03:43 [facility] 05/03 03:42 Order name: Cardiac monitoring; Complete Time: 03:48 [facility] 05/03 03:42 Order name: EKG - Nurse/Tech; Complete Time: 03:48 [facility] 05/03 03:42 Order name: IV Saline Lock; Complete Time: 03:48 [facility] 05/03 03:42 Order name: Labs collected and sent; Complete Time: 03:48 [facility] 05/03 03:42 Order name: O2 Per Protocol; Complete Time: 03:49 [facility] 05/03 03:42 Order name: O2 Sat Monitoring; Complete Time: 03:49 [facility] 05/03 04:44 Order name: CONS Pharmacy Consult [facility] 05/03 04:44 Order name: NPO [facility] 05/03 06:17 Order name: Glucose, Ancillary Testing; Complete Time: 06:22 [facility] 05/03 08:45 Order name: Glucose, Ancillary Testing [facility] 05/03 08:48 Order name: Glucose, Ancillary Testing EDMS EC:56 Rate is 108 beats/min. Rhythm is regular. QRS [place] is Normal. GA interval is normal. [facility] QRS interval is normal. QT interval is normal. No Q waves. T waves are Normal. No ST changes noted. Clinical impression: Sinus tachycardia and No evidence of ischemia. Interpreted by me. Reviewed by me. Administered Medications: 03:55 Drug: NS 0.9% 1000 ml Route: IV; Rate: 1 bolus; Site: right antecubital; rv 06:00 Follow up: IV Status: Completed infusion; IV Intake: 1000ml rv 03:55 Drug: NS 0.9% 1000 ml Route: IV; Rate: 1 bolus; Site: right antecubital; rv 06:00 Follow up: IV Status: Completed infusion; IV Intake: 1000ml rv 03:56 Not Given (Duplicate Order): Zofran (Ondansetron) 4 mg IVP once; over 2 minutes [facility] 04:30 Drug: Pepcid 20 mg Route: IVP; Site: right antecubital; 06:00 Follow up: Response: No adverse reaction rv 04:51 Drug: Insulin Drip - (Insulin Regular Human 100 units, NS 0.9% 100 ml) {Co-Signature: [facility] (Helio Peña RN).} Route: IV; Rate: 4 units/hr; Site: right antecubital; 06:00 Follow up: IV Status: Infusion continued upon admission rv Disposition: 05/03/20 04:27 Hospitalization ordered by Shital Orozco for Inpatient Admission. Preliminary diagnosis are Diabetes mellitus due to underlying condition with ketoacidosis without coma, Weakness, Vomiting, Hyperkalemia, Acute kidney failure - on chronic renal failure. - Bed requested for [facility] ER HOLD. - Status is Inpatient Admission. ss - Condition is Fair. - Problem is new. - Symptoms have improved. Signatures: Dispatcher [employer] EDJono Nieves RN RN Spencer Foss MD MD cha Ballard, Brenda, RN RN bb Smirch, Shelby, RN RN ss Bri Mccoy RN RN Helio Peña RN RN rv Helio Peña RN rv Corrections: (The following items were deleted from the chart) 05:02 04:27 Hospitalization Ordered by Shital Orzoco MD for Inpatient Admission. Preliminary cg diagnosis is Diabetes mellitus due to underlying condition with ketoacidosis without coma; Weakness; Vomiting; Hyperkalemia; Acute kidney failure - on chronic renal failure. Bed requested for Intensive Care Unit. Status is Inpatient Admission. Condition is Fair. Problem is new. Symptoms have improved. [facility] 05:17 05:02 05/03/2020 04:27 Hospitalization Ordered by Shital Orozco MD for Inpatient cg Admission. Preliminary diagnosis is Diabetes mellitus due to underlying condition with ketoacidosis without coma; Weakness; Vomiting; Hyperkalemia; Acute kidney failure - on chronic renal failure. Bed requested for [facility] ER HOLD. Status is Inpatient Admission. Condition is Fair. Problem is new. Symptoms have improved. 09:24 05:17 05/03/2020 04:27 Hospitalization Ordered by Shital Orozco MD for Inpatient Admission. Preliminary diagnosis is Diabetes mellitus due to underlying condition with ketoacidosis without coma; Weakness; Vomiting; Hyperkalemia; Acute kidney failure - on chronic renal failure. Bed requested for [facility] ER HOLD. Status is Inpatient Admission. Condition is Fair. Problem is new. Symptoms have improved. cg
[2020-05-03] MEDS ORDERED: INSULIN -REGULAR HUMAN 100 UNIT in NA CHLORIDE 0.9% 100 ML IV SCH (04:45)
[2020-05-03] MEDS ORDERED: INSULIN -REGULAR HUMAN 50 UNIT/0.5 ML ML ONE (04:48)
[2020-05-03] MEDS ORDERED: NA CHLORIDE 0.9% 100 ML IV ONE (04:49)
[2020-05-03] MEDS ORDERED: FAMOTIDINE 20 MG/2 ML VIAL IV ONE (04:49)
[2020-05-03] MEDS ORDERED: NA CHLORIDE 0.9% 1,000 ML ONE (04:54)
--- NOTE | 2020-05-03 04:55 | P.HP ---
Certification for Inpatient With expected LOS: >2 Midnights Patient will require the following post-hospital care: None Practitioner: I am a practitioner with admitting privileges, knowledge of patient current condition, hospital course, and medical plan of care. Services: Services provided to patient in accordance with Admission requirements found in Title 42 Section 412.3 of the Code of Federal Regulations <Rigoberto Briggs - Last Filed: 05/03/20 05:11> Patient History Date of Service: 05/03/20 Reason for admission: Diabetic ketoacidosis History of Present Illness: 54-year-old female with a past medical history of type 1 diabetes, hypertension, history of pulmonary embolus, chronic back pain and tobacco abuse presents to the emergency room via EMS with complaints of intractable nausea and vomiting. Patient states it occurred 2 days ago and has progressively worsened. In the emergency room patient is found to be in DKA. Patient states that the arm glucose meter that she has been using fell off her arm an stopped working. She has been noncompliant with her insulin. Blood work shows an ABG with a pH of 7.25, CO2 of 26.7 and a bicarb of 11.3 indicating metabolic acidosis. Blood glucose measured at 361 and a creatinine of 1.71. Patient will be placed in ICU and further evaluated. Case discussed with . - Past Medical/Surgical History Diabetic: Yes -: Depression with anxiety -: Severe pulmonary hypertension -: History of BILATERAL PE/DVT(RIGHT LEG) on chronic anticoagulation -: Chronic Back pain with DDD/DJD(BROKEN SACRUM) -: Tobacco abuse -: History of UTI -: History of Syncope -: Restless Leg Syndrome -: HTN -: RESTLESS LEG -: HTN -: Type 1 diabetes -: Back surgery -: Right knee replacement -: Left foot/ankle surgery Psychosocial/ Personal History: , 1 child, She no longer works. - Family History Father -: Hypertension Mother -: Diabetes - Social History Alcohol use: No CD- Drugs: No Caffeine use: No Place of Residence: Home <Rigoberto Briggs - Last Filed: 05/03/20 05:11> Date of Service: 05/03/20 <Shital Orozco - Last Filed: 05/08/20 04:36> Allergies No Known Allergies Allergy (Verified 01/27/17 17:16) Home Medications: Insuln Asp Prt/Insulin Aspart [Novolog Mix 70-30 Vial] See Protocol SQ ACHS 10/04/12 Tizanidine [Zanaflex*] 4 mg PO BID 10/04/12 Rivaroxaban [Xarelto] 20 mg PO DAILY #30 tablet 10/10/12 LORazepam [Ativan*] 2 mg PO TID PRN 07/04/15 Montelukast [Singulair*] 10 mg PO BEDTIME 07/04/15 Ondansetron HCl [Zofran] 4 mg PO Q8HP PRN 07/04/15 Pregabalin [Lyrica] 150 mg PO TID 07/04/15 Acetaminophen [Tylenol Extra Strength] 1,000 mg PO Q6HP PRN 01/27/17 Albuterol Inhaler [Ventolin Inhaler*] 2 puff IH Q6H PRN 01/27/17 Budesonide/Formoterol Fumarate [Symbicort 160-4.5 Mcg Inhaler] 1 puff IH BIDP PRN 01/27/17 Calcium Carbonate [Tums Regular*] 500 mg PO TID PRN 01/27/17 Duloxetine HCl 60 mg PO BEDTIME 01/27/17 Insulin Degludec [Tresiba Flextouch U-200] 44 units SQ DAILY 01/27/17 Oxycodone HCl 15 mg PO BEDTIME 01/27/17 Ropinirole HCl 2 mg PO DAILY 01/27/17 Rosuvastatin [Crestor*] 10 mg PO BEDTIME 01/27/17 Erythromycin Base [Ignacio-Tab] 250 mg PO ACHS #56 tablet. 05/06/20 Review of Systems General: As per HPI Eyes: Unremarkable ENT: Unremarkable Respiratory: As per HPI Cardiovascular: Unremarkable Gastrointestinal: Nausea, Vomiting Genitourinary: Unremarkable Musculoskeletal: Unremarkable Integumentary: Unremarkable Neurological: Unremarkable Lymphatics: Unremarkable <Rigoberto Briggs - Last Filed: 05/03/20 05:11> Physical Examination - Vital Signs Temperature: 98.5 F Blood Pressure: 148/87 Pulse: 104 Respirations: 20 Pulse Ox (%): 98 (RA) - Physical Exam General: Alert, In no apparent distress, Oriented x3 HEENT: Atraumatic, Normocephalic, PERRLA Neck: Supple, No Thyromegaly, Other (Trachea midline) Respiratory: Clear to auscultation bilaterally, Normal air movement Cardiovascular: No edema, Normal pulses, Regular rate/rhythm, Normal S1 S2 Capillary refill: <2 Seconds Gastrointestinal: Normal bowel sounds, Soft and benign, Non-distended Musculoskeletal: No clubbing, No swelling, No contractures, No erythema Integumentary: No rashes, No breakdown, No significant lesion, No tenderness/swelling Neurological: Normal gait, Normal speech, Normal strength at 5/5 x4 extr, Normal tone - Studies Laboratory Data (last 24 hrs) 05/03/20 03:45: PT 10.2, INR 0.86 05/03/20 03:45: WBC 10.6, Hgb 12.2, Hct 36.7, Plt Count 318 05/03/20 03:45: Sodium 133 L, Potassium 5.2 H, BUN 35 H, Creatinine 1.71 H, Glucose 342 H, Magnesium 2.3, Total Bilirubin 0.4, AST 9 L, ALT 20, Alkaline Phosphatase 131 H <Rigoberto Briggs - Last Filed: 05/03/20 05:11> Assessment and Plan - Plan Impression: Metabolic acidosis secondary to Diabetic ketoacidosis: Intractable nausea vomiting: Acute kidney injury: Noncompliance with medications: Nicotine abuse: History of DVT/PE on Xarelto: Plan: Metabolic acidosis secondary to Diabetic ketoacidosis: ABG showing a pH of 7.25, a CO2 26.7 and a bicarb of 11.3 with blood glucose of 361 and a calculated anion gap of 21. Patient was started on IV fluids in the ER. And an insulin drip. Will continue insulin drip, follow ICU protocols, monitor blood glucose, keep NPO. Intractable nausea and vomiting: Likely secondary to diabetic ketoacidosis. Improved now with Zofran. Will continue Zofran 4 mg q. 6 hr p.r.n.. Continue IV hydration. Acute kidney injury: Likely secondary to dehydration from nausea and vomiting. Will continue IV fluids as above. Monitor creatinine and daily labs. Noncompliance with medications: Has been off her medications for the past 3 days. Nicotine abuse: Continues to smoke half a pack of cigarettes per day. Counseled. History of DVT/PE on Xarelto: Will resume all home medications once nausea and vomiting have resolved. Discharge Plan: Home Plan to discharge in: Greater than 2 days - Advance Directives Does patient have a Living Will: No Does patient have a Durable POA for Healthcare: No - Code Status/Comfort Care Code Status Assessed: Yes Time Spent Managing Pts Care (In Minutes): 55 <Rigoberto Briggs - Last Filed: 05/03/20 05:11> - Problems (Diagnosis) (1) DKA (diabetic ketoacidoses) Onset Date: 01/28/17 Status: Acute Qualifiers: Diabetes mellitus type: type 1 Diabetes mellitus complication detail: without coma Qualified Code(s): E10.10 - Type 1 diabetes mellitus with ketoacidosis without coma (2) Nausea and vomiting Onset Date: 01/28/17 Status: Acute (3) Tobacco dependence syndrome Status: Acute (4) COPD (chronic obstructive pulmonary disease) Status: Chronic Qualifiers: COPD type: chronic bronchitis (5) Diabetes mellitus type 2 Status: Chronic (6) History of pulmonary embolism Status: Chronic (7) Hyperlipidemia Onset Date: 01/28/17 Status: Chronic (8) Hypertension Onset Date: 01/28/17 Status: Chronic Qualifiers: Hypertension type: essential hypertension Qualified Code(s): I10 - Essential (primary) hypertension (9) Pulmonary hypertension Onset Date: 01/28/17 Status: Chronic (10) Tachyarrhythmia Status: Acute <Shital Orozco - Last Filed: 05/08/20 04:36> Date of Service: 05/03/20 Discussed case with physician first assistant. Agree with plan of care as mentioned above. Hopefully we can correct her anion gap and transfer to the floor. Additional workup will be continued. <Shital Orozco - Last Filed: 05/08/20 04:36>
[2020-05-03] MEDS: D5 0.45 NS 1,000 ML IV SCH ×3 (05:00→18:20)
--- NOTE | 2020-05-03 08:20 | RAD REPORT ---
EXAM DESCRIPTION: Cathy Single View05/03/2020 4:23 am CLINICAL HISTORY: Cough COMPARISON: 2018 FINDINGS: The lungs appear clear of acute infiltrate. The heart is normal size IMPRESSION: No acute abnormalities displayed
[2020-05-03 08:52] LABS: BUN Blood Urea Nitrogen 33 mg/dL (7-18); Bicarbonate 17 mmol/L (21-32); Glucose Level 245 mg/dL (74-106); Potassium 4.9 mmol/L (3.5-5.1); Sodium Level 137 mmol/L (136-145)
[2020-05-03] MEDS ORDERED: ENOXAPARIN 40 MG/0.4 ML SQ SCH (09:00)
[2020-05-03] MEDS ORDERED: D5 0.9 NS 1,000 ML IV ONE (09:56)
[2020-05-03] MEDS ORDERED: D5 0.9 NS 1,000 ML IV SCH (10:00)
--- NOTE | 2020-05-03 12:02 | EKG ---
Test Date: 2020-05-03 Test Time: 03:45:21 Administrative Liaison: RV MEASUREMENT RESULTS: Intervals: Rate: 108 NE: 162 QRSD: 110 QT: 342 QTc: 458 [place]: P: 62 NE: 162 QRS: 36 T: 57 INTERPRETIVE STATEMENTS: Sinus tachycardia Possible Left atrial enlargement Incomplete right bundle branch block Anterior infarct, age undetermined Abnormal ECG No previous ECG available for comparison Electronically Signed On 05-03-20 12:01:15 CDT by Ryan Khanna
[2020-05-03] MEDS ORDERED: HOME MED 1 EA UNK (Budesonide/Formoterol Fumarate [Symbicort 160-4.5 Mcg Inhaler] 1 PUFF) IH PRN (12:10)
[2020-05-03] MEDS ORDERED: CALCIUM CARBONATE CHEW 500MG TAB PO PRN (12:10)
[2020-05-03] MEDS ORDERED: LORAZEPAM 1 MG TABLET PO PRN (12:10)
--- NOTE | 2020-05-03 12:33 | P.PN ---
Subjective Date of Service: 05/03/20 Patient and clinically improving. Anion gap is almost close. May be able to start a diet later today and start long-acting insulin. Review of Systems 10-point ROS is otherwise unremarkable Physical Examination - Vital Signs Temperature: 98.6 F Blood Pressure: 148/76 Pulse: 114 Respirations: 12 Pulse Ox (%): 97 - Physical Exam General: Alert, In no apparent distress, Oriented x3 Respiratory: Clear to auscultation bilaterally, Normal air movement Cardiovascular: Regular rate/rhythm, Normal S1 S2 Gastrointestinal: Normal bowel sounds, Soft and benign, Non-distended Musculoskeletal: No clubbing, No swelling, No contractures Neurological: Normal gait, Cranial nerves 3-12 intact - Studies Laboratory Data (last 24 hrs) 05/03/20 03:45: PT 10.2, INR 0.86 05/03/20 03:45: WBC 10.6, Hgb 12.2, Hct 36.7, Plt Count 318 05/03/20 03:45: Sodium 133 L, Potassium 5.2 H, BUN 35 H, Creatinine 1.71 H, Glucose 342 H, Magnesium 2.3, Total Bilirubin 0.4, AST 9 L, ALT 20, Alkaline Phosphatase 131 H Assessment & Plan - Problems (Diagnosis) (1) DKA (diabetic ketoacidoses) Onset Date: 01/28/17 Current Visit: No Status: Acute Qualifiers: Diabetes mellitus type: type 1 Diabetes mellitus complication detail: without coma Qualified Code(s): E10.10 - Type 1 diabetes mellitus with ketoacidosis without coma (2) Nausea and vomiting Onset Date: 01/28/17 Current Visit: No Status: Acute (3) Tobacco dependence syndrome Current Visit: No Status: Acute (4) COPD (chronic obstructive pulmonary disease) Current Visit: No Status: Chronic Qualifiers: COPD type: chronic bronchitis (5) Diabetes mellitus type 2 Current Visit: No Status: Chronic (6) History of pulmonary embolism Current Visit: No Status: Chronic (7) Hyperlipidemia Onset Date: 01/28/17 Current Visit: No Status: Chronic (8) Hypertension Onset Date: 01/28/17 Current Visit: No Status: Chronic Qualifiers: Hypertension type: essential hypertension Qualified Code(s): I10 - Essential (primary) hypertension (9) Pulmonary hypertension Onset Date: 01/28/17 Current Visit: No Status: Chronic (10) Tachyarrhythmia Current Visit: Yes Status: Acute - Plan 1. IV hydration 2. Insulin drip 3. Accu-Cheks q1h 4. Measure anion gap every 2 hrs 5. Resume diet once anion gap is closed and will resume insulin pump 6. Diabetic education 7. Long-acting insulin once patient able to tolerate diet and at that time will discontinue insulin drip 8. May start low-dose beta-[place] if heart rate stays elevated; hopefully is related to dehydration and once patient gets plenty of fluids heart rate will improve. Patient also takes a lot of chronic medication that she has not been taking in over 24 hr. She could also be when trying especially from the Ativan for oxycodone. Will monitor closely. - Advance Directives Does patient have a Living Will: No Does patient have a Durable POA for Healthcare: No
[2020-05-03] MEDS ORDERED: D5 0.45 NS 1,000 ML IV ONE ×2 (12:46→20:15)
[2020-05-03 13:20] LABS: BUN Blood Urea Nitrogen 29 mg/dL (7-18); Bicarbonate 17 mmol/L (21-32); Glucose Level 263 mg/dL (74-106); Potassium 4.8 mmol/L (3.5-5.1); Sodium Level 137 mmol/L (136-145)
[2020-05-03 13:43] VITALS: BMI 24.3
[2020-05-03] MEDS: PREGABALIN 150 MG CAP PO SCH ×2 (14:00→21:00)
[2020-05-03] MEDS: ONDANSETRON 4 MG (ODT) TAB PO PRN (14:21)
[2020-05-03] MEDS ORDERED: ACETAMINOPHEN 325 MG TABLET PO PRN (16:36)
[2020-05-03] MEDS: RIVAROXABAN 20 MG TABLET PO SCH (17:00)
[2020-05-03 17:38] LABS: BUN Blood Urea Nitrogen 26 mg/dL (7-18); Bicarbonate 16 mmol/L (21-32); Glucose Level 275 mg/dL (74-106); Magnesium 1.9 mg/dL (1.8-2.4); Phosphorus 1.1 mg/dL (2.5-4.9); Potassium 4.5 mmol/L (3.5-5.1); Sodium Level 137 mmol/L (136-145)
[2020-05-03] MEDS ORDERED: LORazepam 2 MG/ML VIAL IV ONE (18:00)
[2020-05-03] MEDS ORDERED: LORazepam 2 MG/ML VIAL ONE (18:20)
[2020-05-03 21:04] LABS: Potassium 3.6 mmol/L (3.5-5.1)
[2020-05-03] MEDS: DULOXETINE 30 MG CAP PO SCH (21:25)
[2020-05-03] MEDS: ROSUVASTATIN 10 MG TAB PO SCH (21:25)
[2020-05-03] MEDS: MONTELUKAST 10 MG TAB PO SCH (21:25)
[2020-05-03] MEDS: TIZANIDINE 4 MG TABLET PO SCH (21:25)
[2020-05-04] MEDS: D5 0.45 NS 1,000 ML IV SCH ×3 (01:00→14:20)
[2020-05-04 04:35] LABS: Absolute Lymphocytes (CBC) 2.1 K/uL (0.7-4.9); Basophils % 0.7 % (0-1.3); Hematocrit 32.8 % (36.0-45.0); Lymphocytes % 21.1 % (15.3-44.8); MPV 9.1 fL (7.6-11.3); RBC Red Blood Cell Count 3.77 M/uL (3.86-4.86)
[2020-05-04 04:48] LABS: Potassium 4.5 mmol/L (3.5-5.1)
[2020-05-04 04:52] LABS: Magnesium 1.7 mg/dL (1.8-2.4)
[2020-05-04] MEDS: INSULIN DEGLUDEC 44 UNIT SQ SCH (09:00)
[2020-05-04] MEDS ORDERED: D5W 1,000 ML IV SCH (09:00)
[2020-05-04] MEDS: ROPINIROLE HCL 1 MG TAB PO SCH (09:00)
[2020-05-04] MEDS: TIZANIDINE 4 MG TABLET PO SCH ×2 (09:00→21:29)
[2020-05-04] MEDS ORDERED: RIVAROXABAN 20 MG TABLET PO SCH (09:00)
[2020-05-04] MEDS: PREGABALIN 150 MG CAP PO SCH ×3 (09:00→21:05)
[2020-05-04 10:02] LABS: Potassium 3.9 mmol/L (3.5-5.1)
[2020-05-04] MEDS ORDERED: GLUCAGON 1 MG/VIAL IM PRN ×2 (12:48→16:15)
[2020-05-04] MEDS ORDERED: D50W 25 GM/50 ML SYRINGE/VIAL IV PRN ×2 (12:48→16:15)
[2020-05-04] MEDS ORDERED: INSULIN GLARGINE 100 UNITS/ML SQ ONE (13:14)
[2020-05-04] MEDS ORDERED: NA CHLORIDE 0.9% 1,000 ML ONE (14:09)
[2020-05-04] MEDS ORDERED: METOPROLOL XL 25 MG TAB PO ONE (14:30)
[2020-05-04] MEDS ORDERED: PREGABALIN 150 MG CAP PO ONE ×2 (15:43→21:01)
[2020-05-04] MEDS ORDERED: PREGABALIN 50 MG CAP ONE (15:44)
[2020-05-04] MEDS: INSULIN -REGULAR HUMAN 50 UNIT/0.5 ML ML SQ SCH ×2 (16:57→21:00)
[2020-05-04] MEDS: RIVAROXABAN 20 MG TABLET PO SCH (17:00)
[2020-05-04] MEDS ORDERED: LORazepam 2 MG/ML VIAL ONE (20:58)
[2020-05-04] MEDS ORDERED: INSULIN -REGULAR HUMAN 50 UNIT/0.5 ML ML ONE (20:58)
[2020-05-04] MEDS: LORazepam 2 MG/ML VIAL IV PRN (21:06)
[2020-05-04] MEDS ORDERED: MONTELUKAST 10 MG TAB ONE (21:27)
[2020-05-04] MEDS ORDERED: DULOXETINE 30 MG CAP PO ONE (21:27)
[2020-05-04] MEDS: DULOXETINE 30 MG CAP PO SCH (21:29)
[2020-05-04] MEDS: MONTELUKAST 10 MG TAB PO SCH (21:29)
[2020-05-04] MEDS: ROSUVASTATIN 10 MG TAB PO SCH (21:29)
[2020-05-04] MEDS ORDERED: ONDANSETRON 4 MG/2 ML VIAL ONE (21:45)
[2020-05-04] MEDS: ONDANSETRON 4 MG (ODT) TAB PO PRN (22:03)
[2020-05-04] MEDS ORDERED: ONDANSETRON 4 MG (ODT) TAB ONE (22:14)
[2020-05-05 06:32] LABS: Absolute Lymphocytes (CBC) 2.8 K/uL (0.7-4.9); Hematocrit 28.6 % (36.0-45.0); MPV 8.6 fL (7.6-11.3); RBC Red Blood Cell Count 3.36 M/uL (3.86-4.86)
[2020-05-05] MEDS: INSULIN -REGULAR HUMAN 50 UNIT/0.5 ML ML SQ SCH ×4 (08:39→20:46)
[2020-05-05] MEDS: INSULIN GLARGINE 100 UNITS/ML SQ SCH (08:40)
[2020-05-05] MEDS: PREGABALIN 150 MG CAP PO SCH ×3 (08:41→20:45)
[2020-05-05] MEDS: ROPINIROLE HCL 1 MG TAB PO SCH (08:41)
[2020-05-05] MEDS: TIZANIDINE 4 MG TABLET PO SCH ×2 (08:42→20:45)
[2020-05-05] MEDS: INSULIN DEGLUDEC 44 UNIT SQ SCH (08:44)
--- NOTE | 2020-05-05 08:58 | P.PN ---
Subjective Date of Service: 05/04/20 PATIENT CONTINUES TO IMPROVE. STARTED ON DIET. IF SHE TOLERATES IT THEN ANTICIPATE DISCHARGE HOME THIS EVENING OR IN THE MORNING. WILL GO HOME WITH SOME ZOFRAN WELL FOR HER NAUSEA. Review of Systems 10-point ROS is otherwise unremarkable Physical Examination - Vital Signs Temperature: 97.4 F Blood Pressure: 135/69 Pulse: 87 Respirations: 14 Pulse Ox (%): 93 - Physical Exam General: Alert, In no apparent distress Respiratory: Clear to auscultation bilaterally, Normal air movement Cardiovascular: Regular rate/rhythm, Normal S1 S2, No murmurs Gastrointestinal: Normal bowel sounds, Soft and benign, Non-distended, No tenderness Musculoskeletal: No tenderness Integumentary: No rashes Neurological: Normal speech, Normal tone, Normal affect Lymphatics: No axilla or inguinal lymphadenopathy - Studies Medications List Reviewed: Yes Assessment & Plan - Problems (Diagnosis) (1) DKA (diabetic ketoacidoses) Onset Date: 01/28/17 Current Visit: No Status: Acute Qualifiers: Diabetes mellitus type: type 1 Diabetes mellitus complication detail: without coma Qualified Code(s): E10.10 - Type 1 diabetes mellitus with ketoacidosis without coma (2) Nausea and vomiting Onset Date: 01/28/17 Current Visit: No Status: Acute (3) Tobacco dependence syndrome Current Visit: No Status: Acute (4) COPD (chronic obstructive pulmonary disease) Current Visit: No Status: Chronic Qualifiers: COPD type: chronic bronchitis (5) Diabetes mellitus type 2 Current Visit: No Status: Chronic (6) History of pulmonary embolism Current Visit: No Status: Chronic (7) Hyperlipidemia Onset Date: 01/28/17 Current Visit: No Status: Chronic (8) Hypertension Onset Date: 01/28/17 Current Visit: No Status: Chronic Qualifiers: Hypertension type: essential hypertension Qualified Code(s): I10 - Essential (primary) hypertension (9) Pulmonary hypertension Onset Date: 01/28/17 Current Visit: No Status: Chronic (10) Tachyarrhythmia Current Visit: Yes Status: Acute - Plan 1. IV hydration 2. Started long-acting insulin 3. Accu-Cheks q.a.c. q.h.s. 4. Anion gap is closed 5. Continue with 1800 kilocalorie ADA diet 6. May start low-dose beta-[place] if heart rate stays elevated; hopefully is related to dehydration and once patient gets plenty of fluids heart rate will improve. Patient also takes a lot of chronic medication that she has not been taking in over 24 hr. She could also be when trying especially from the Ativan for oxycodone. Will monitor closely. Discharge Plan: Home Plan to discharge in: Greater than 2 days - Advance Directives Does patient have a Living Will: No Does patient have a Durable POA for Healthcare: No - Code Status/Comfort Care Code Status Assessed: No Code Status: Full Code Critical Care: No Time Spent Managing PTS Care (In Minutes): 35
[2020-05-05] MEDS ORDERED: MAGNESIUM SULFATE 1 gm IVPB 1 GM/100 ML BAG IV ONE (09:00)
--- NOTE | 2020-05-05 09:00 | P.DS ---
Discharge Date: 05/05/20 Disposition: ROUTINE DISCHARGE Discharge Condition: GOOD Reason for Admission: Diabetic ketoacidosis - Problems (1) DKA (diabetic ketoacidoses) Onset Date: 01/28/17 Current Visit: No Status: Acute Qualifiers: Diabetes mellitus type: type 1 Diabetes mellitus complication detail: without coma Qualified Code(s): E10.10 - Type 1 diabetes mellitus with ketoacidosis without coma (2) Nausea and vomiting Onset Date: 01/28/17 Current Visit: No Status: Acute (3) Tobacco dependence syndrome Current Visit: No Status: Acute (4) COPD (chronic obstructive pulmonary disease) Current Visit: No Status: Chronic Qualifiers: COPD type: chronic bronchitis (5) Diabetes mellitus type 2 Current Visit: No Status: Chronic (6) History of pulmonary embolism Current Visit: No Status: Chronic (7) Hyperlipidemia Onset Date: 01/28/17 Current Visit: No Status: Chronic (8) Hypertension Onset Date: 01/28/17 Current Visit: No Status: Chronic Qualifiers: Hypertension type: essential hypertension Qualified Code(s): I10 - Essential (primary) hypertension (9) Pulmonary hypertension Onset Date: 01/28/17 Current Visit: No Status: Chronic (10) Tachyarrhythmia Current Visit: Yes Status: Acute Brief History of Present Illness: Patient is a 54-year-old female who was admitted to the hospital with diabetic ketoacidosis. She was started on insulin drip and aggressive IV hydration and admitted to the intensive care unit. Hospital Course: Patient had persistent nausea and vomiting which prolonged her hospitalization. At this time she is doing much better and her anion gap is closed and blood sugars are stable. She is stable for discharge home with outpatient follow-up. Will continue on some Zofran for her nausea. Vital Signs/Physical Exam: Temp Pulse Resp BP Pulse Ox 97.4 F 87 14 135/69 93 05/05/20 08:58 05/05/20 08:58 05/05/20 08:58 05/05/20 08:58 05/05/20 08:58 General: Alert, In no apparent distress, Oriented x3 Laboratory Data at Discharge: WBC Cancelled 05/05/20 Unknown Hgb Cancelled 05/05/20 Unknown Hct Cancelled 05/05/20 Unknown Plt Count Cancelled 05/05/20 Unknown PT 10.2 SECONDS (9.5-12.5) 05/03/20 03:45 INR 0.86 05/03/20 03:45 Sodium 140 mmol/L (136-145) 05/04/20 09:25 Potassium 3.9 mmol/L (3.5-5.1) 05/04/20 09:25 BUN 18 mg/dL (7-18) 05/04/20 09:25 Creatinine 1.02 mg/dL (0.55-1.3) 05/04/20 09:25 Glucose 142 mg/dL (74-106) H 05/04/20 09:25 Phosphorus 1.1 mg/dL (2.5-4.9) L 05/03/20 16:55 Magnesium 1.7 mg/dL (1.8-2.4) L 05/05/20 05:50 Total Bilirubin 0.4 mg/dL (0.2-1.0) 05/03/20 03:45 AST 9 U/L (15-37) L 05/03/20 03:45 ALT 20 U/L (12-78) 05/03/20 03:45 Alkaline Phosphatase 131 U/L (45-117) H 05/03/20 03:45 Triglycerides 187 mg/dL (<150) H 05/04/20 04:10 Cholesterol 181 mg/dL (<200) 05/04/20 04:10 HDL Cholesterol 35 mg/dL (40-60) L 05/04/20 04:10 Cholesterol/HDL Ratio 5.17 05/04/20 04:10 Home Medications: Insuln Asp Prt/Insulin Aspart [Novolog Mix 70-30 Vial] See Protocol SQ ACHS 10/04/12 Tizanidine [Zanaflex*] 4 mg PO BID 10/04/12 Rivaroxaban [Xarelto] 20 mg PO DAILY #30 tablet 10/10/12 LORazepam [Ativan*] 2 mg PO TID PRN 07/04/15 Montelukast [Singulair*] 10 mg PO BEDTIME 07/04/15 Ondansetron HCl [Zofran] 4 mg PO Q8HP PRN 07/04/15 Pregabalin [Lyrica] 150 mg PO TID 07/04/15 Acetaminophen [Tylenol Extra Strength] 1,000 mg PO Q6HP PRN 01/27/17 Albuterol Inhaler [Ventolin Inhaler*] 2 puff IH Q6H PRN 01/27/17 Budesonide/Formoterol Fumarate [Symbicort 160-4.5 Mcg Inhaler] 1 puff IH BIDP PRN 01/27/17 Calcium Carbonate [Tums Regular*] 500 mg PO TID PRN 01/27/17 Duloxetine HCl 60 mg PO BEDTIME 01/27/17 Insulin Degludec [Tresiba Flextouch U-200] 44 units SQ DAILY 01/27/17 Oxycodone HCl 15 mg PO BEDTIME 01/27/17 Ropinirole HCl 2 mg PO DAILY 01/27/17 Rosuvastatin [Crestor*] 10 mg PO BEDTIME 01/27/17 Patient Discharge Instructions: OK TO DC IV AND DC HOME. FOLLOW-UP WITH PRIMARY CARE PROVIDER IN 1-2 WEEKS. RETURN TO THE ER IF SYMPTOMS WORSEN. CALL or TEXT DR. GORDON AT [phone] IF ANY QUESTIONS REGARDING HOSPITAL STAY. PLEASE CALL THE FLOOR AT [phone] IF ANY MEDICATION OR NURSING QUESTIONS. Diet: ADA Activity: Fall precautions Time spent managing pt's care (in minutes): 35
[2020-05-05] MEDS ORDERED: NA CHLORIDE 0.9% 250 ML ONE (09:33)
[2020-05-05] MEDS: ONDANSETRON 4 MG (ODT) TAB PO PRN (10:43)
[2020-05-05] MEDS: LORazepam 2 MG/ML VIAL IV PRN ×2 (10:44→23:17)
[2020-05-05] MEDS ORDERED: NA CHLORIDE 0.9% 1,000 ML IV ONE (11:11)
[2020-05-05 12:07] LABS: Albumin 2.2 g/dL (3.4-5.0); Bilirubin Total 0.2 mg/dL (0.2-1.0); Protein, Total 5.5 g/dL (6.4-8.2)
[2020-05-05] MEDS: RIVAROXABAN 20 MG TABLET PO SCH (17:00)
[2020-05-05] MEDS: OXYCODONE HCL 5 MG TAB PO PRN (20:44)
[2020-05-05] MEDS: DULOXETINE 30 MG CAP PO SCH (20:44)
[2020-05-05] MEDS: ROSUVASTATIN 10 MG TAB PO SCH (20:45)
[2020-05-05] MEDS: MONTELUKAST 10 MG TAB PO SCH (20:45)
[2020-05-06 06:45] LABS: Absolute Lymphocytes (CBC) 2.7 K/uL (0.7-4.9); Basophils % 0.8 % (0-1.3); Hematocrit 28.7 % (36.0-45.0); Lymphocytes % 56.4 % (15.3-44.8); MPV 8.7 fL (7.6-11.3); RBC Red Blood Cell Count 3.36 M/uL (3.86-4.86)
[2020-05-06 06:53] LABS: Magnesium 1.8 mg/dL (1.8-2.4); Potassium 3.8 mmol/L (3.5-5.1)
[2020-05-06] MEDS: INSULIN -REGULAR HUMAN 50 UNIT/0.5 ML ML SQ SCH ×3 (07:30→17:16)
[2020-05-06] MEDS: INSULIN DEGLUDEC 44 UNIT SQ SCH (09:00)
[2020-05-06] MEDS ORDERED: POTASSIUM CL SA 10 MEQ TAB PO ONE (09:00)
[2020-05-06] MEDS: PREGABALIN 150 MG CAP PO SCH ×2 (09:00→14:08)
[2020-05-06] MEDS ORDERED: MAGNESIUM SULFATE 1 gm IVPB 1 GM/100 ML BAG IV ONE (09:00)
[2020-05-06] MEDS: ROPINIROLE HCL 1 MG TAB PO SCH ×2 (09:00→12:32)
[2020-05-06] MEDS: TIZANIDINE 4 MG TABLET PO SCH (09:00)
[2020-05-06] MEDS: INSULIN GLARGINE 100 UNITS/ML SQ SCH (09:44)
[2020-05-06] MEDS ORDERED: NA CHLORIDE 0.9% 250 ML ONE (09:57)
--- NOTE | 2020-05-06 12:25 | RAD REPORT ---
EXAM DESCRIPTION: CT - Head Brain Wo Cont - 05/06/2020 11:43 am CLINICAL HISTORY: Headache COMPARISON: 2019 TECHNIQUE: Computed axial tomography of the head was obtained. IV contrast was not requested. All CT scans are performed using dose optimization technique as appropriate and may include automated exposure control or mA/KV adjustment according to patient size. FINDINGS: An intracranial bleed is not seen . The ventricles are normal in caliber. No extra-axial fluid collection is noted. Mild chronic ethmoid sinusitis IMPRESSION: No acute intracranial abnormality is seen. If patient's symptoms persist MRI of the bra in would be recommended.
--- NOTE | 2020-05-06 12:46 | RAD REPORT ---
EXAM DESCRIPTION: CT - Abdomen Pelvis W Contrast - 05/06/2020 11:43 am CLINICAL HISTORY: Abdominal pain. COMPARISON: 2016 TECHNIQUE: Computed axial tomography of the abdomen and pelvis was obtained. 100 cc Isovue-300 is ad ministered intravenously. Oral contrast was given. All CT scans are performed using dose optimization technique as appropriate and may include automated exposure control or mA/KV adjustment according to patient size. FINDINGS: 2.2 centimeter area of narrowing involves the second portion of duodenum The liver, spleen, pancreas, adrenals and kidneys appear unremarkable. There is no evidence of diverticulitis IMPRESSION: 2.2 centimeter area of narrowing involving the second portion of the duodenum could eith er be secondary to mass, inflammation or infection. Direct visualization recommended
[2020-05-06] MEDS: ONDANSETRON 4 MG (ODT) TAB PO PRN (14:08)
[2020-05-06] MEDS: OXYCODONE HCL 5 MG TAB PO PRN (15:07)
[2020-05-06 16:42] VITALS: BP 163/103; TEMP 98.5
[2020-05-06] MEDS: RIVAROXABAN 20 MG TABLET PO SCH (17:00)
[2020-05-06 21:03] VITALS: O2SAT 95
--- NOTE | 2020-05-08 09:35 | P.PN ---
Subjective Date of Service: 05/05/20 Patient started having nausea and vomiting after eating. She did not feel comfortable leaving. She said her blood sugars are elevated and she is having some double vision. CT of the head and abdomen and pelvis CT pending. Review of Systems 10-point ROS is otherwise unremarkable Physical Examination - Vital Signs Temperature: 98.5 F Blood Pressure: 163/103 Pulse: 104 Respirations: 18 Pulse Ox (%): 97 - Physical Exam General: Alert, In no apparent distress, Oriented x3 HEENT: Atraumatic, Normocephalic, PERRLA, EOMI Respiratory: Clear to auscultation bilaterally, Normal air movement Cardiovascular: Regular rate/rhythm, Normal S1 S2 Gastrointestinal: Normal bowel sounds, Soft and benign, Non-distended Musculoskeletal: No clubbing, No swelling, No contractures - Studies Medications List Reviewed: Yes Assessment & Plan - Problems (Diagnosis) (1) DKA (diabetic ketoacidoses) Onset Date: 01/28/17 Status: Acute Qualifiers: Diabetes mellitus type: type 1 Diabetes mellitus complication detail: without coma Qualified Code(s): E10.10 - Type 1 diabetes mellitus with ketoacidosis without coma (2) Nausea and vomiting Onset Date: 01/28/17 Status: Acute (3) Tobacco dependence syndrome Status: Acute (4) COPD (chronic obstructive pulmonary disease) Status: Chronic Qualifiers: COPD type: chronic bronchitis (5) Diabetes mellitus type 2 Status: Chronic (6) History of pulmonary embolism Status: Chronic (7) Hyperlipidemia Onset Date: 01/28/17 Status: Chronic (8) Hypertension Onset Date: 01/28/17 Status: Chronic Qualifiers: Hypertension type: essential hypertension Qualified Code(s): I10 - Essential (primary) hypertension (9) Pulmonary hypertension Onset Date: 01/28/17 Status: Chronic (10) Tachyarrhythmia Status: Acute (11) Double vision Status: Acute - Plan Plan: 1. CT of the head and CT of the abdomen and pelvis 2. Continue with IV hydration and antiemetics 3. If the workup is negative then will resume diet 4. 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 I believe she had gastroparesis. She may benefit from an erythromycin. She did not want to take Reglan. 5. GI DVT prophylaxis Discharge Plan: Home Plan to discharge in: Greater than 2 days - Advance Directives Does patient have a Living Will: No Does patient have a Durable POA for Healthcare: No - Code Status/Comfort Care Code Status: Full Code Critical Care: No Time Spent Managing PTS Care (In Minutes): 35
--- NOTE | 2020-05-08 09:37 | P.DS ---
Discharge Date: 05/06/20 Disposition: ROUTINE DISCHARGE Discharge Condition: GOOD Reason for Admission: Diabetic ketoacidosis - Problems (1) DKA (diabetic ketoacidoses) Onset Date: 01/28/17 Status: Acute Qualifiers: Diabetes mellitus type: type 1 Diabetes mellitus complication detail: without coma Qualified Code(s): E10.10 - Type 1 diabetes mellitus with ketoacidosis without coma (2) Nausea and vomiting Onset Date: 01/28/17 Status: Acute (3) Tobacco dependence syndrome Status: Acute (4) COPD (chronic obstructive pulmonary disease) Status: Chronic Qualifiers: COPD type: chronic bronchitis (5) Diabetes mellitus type 2 Status: Chronic (6) History of pulmonary embolism Status: Chronic (7) Hyperlipidemia Onset Date: 01/28/17 Status: Chronic (8) Hypertension Onset Date: 01/28/17 Status: Chronic Qualifiers: Hypertension type: essential hypertension Qualified Code(s): I10 - Essential (primary) hypertension (9) Pulmonary hypertension Onset Date: 01/28/17 Status: Chronic (10) Tachyarrhythmia Status: Acute (11) Double vision Status: Acute Brief History of Present Illness: Patient is a 54-year-old female who was admitted to the hospital with diabetic ketoacidosis. She was started on insulin drip and aggressive IV hydration and admitted to the intensive care unit. Hospital Course: Patient had persistent nausea and vomiting which prolonged her hospitalization. At this time she is doing much better and her anion gap is closed and blood s ugars are stable. She was having some persistent nausea and vomiting in double vision. CT of the head was negative. CT of the abdomen and pelvis did not really reveal any abnormalities. There may have been some stenotic area in the duodenum. She probably needs to get an outpatient endoscopy and recommended her follow up with gastroenterology. She also needs to see the spinning bath person as the diabetes may be affecting her vision. I told her she needs to try to get in within the week. She is stable for discharge home with outpatient follow-up. Will continue on some Zofran for her nausea. Vital Signs/Physical Exam: Temp Pulse Resp BP Pulse Ox 98.5 F 104 H 18 163/103 H 97 05/08/20 09:35 05/08/20 09:35 05/08/20 09:35 05/08/20 09:35 05/08/20 09:35 General: Alert, In no apparent distress, Oriented x3 Laboratory Data at Discharge: WBC 4.8 K/uL (4.3-10.9) D 05/06/20 06:16 Hgb 9.7 g/dL (12.0-15.0) L 05/06/20 06:16 Hct 28.7 % (36.0-45.0) L 05/06/20 06:16 Plt Count 201 K/uL (152-406) 05/06/20 06:16 PT 10.2 SECONDS (9.5-12.5) 05/03/20 03:45 INR 0.86 05/03/20 03:45 Sodium 146 mmol/L (136-145) H 05/06/20 06:16 Potassium 3.8 mmol/L (3.5-5.1) 05/06/20 06:16 BUN 13 mg/dL (7-18) 05/06/20 06:16 Creatinine 0.78 mg/dL (0.55-1.3) 05/06/20 06:16 Glucose 120 mg/dL (74-106) H 05/06/20 06:16 Phosphorus 1.1 mg/dL (2.5-4.9) L 05/03/20 16:55 Magnesium 1.8 mg/dL (1.8-2.4) 05/06/20 06:16 Total Bilirubin 0.2 mg/dL (0.2-1.0) 05/05/20 05:50 AST 19 U/L (15-37) 05/05/20 05:50 ALT 18 U/L (12-78) 05/05/20 05:50 Alkaline Phosphatase 91 U/L (45-117) 05/05/20 05:50 Triglycerides 187 mg/dL (<150) H 05/04/20 04:10 Cholesterol 181 mg/dL (<200) 05/04/20 04:10 HDL Cholesterol 35 mg/dL (40-60) L 05/04/20 04:10 Cholesterol/HDL Ratio 5.17 05/04/20 04:10 Lipase 282 U/L (73-393) 05/05/20 05:50 Home Medications: Insuln Asp Prt/Insulin Aspart [Novolog Mix 70-30 Vial] See Protocol SQ ACHS 10/04/12 Tizanidine [Zanaflex*] 4 mg PO BID 10/04/12 Rivaroxaban [Xarelto] 20 mg PO DAILY #30 tablet 10/10/12 LORazepam [Ativan*] 2 mg PO TID PRN 07/04/15 Montelukast [Singulair*] 10 mg PO BEDTIME 07/04/15 Ondansetron HCl [Zofran] 4 mg PO Q8HP PRN 07/04/15 Pregabalin [Lyrica] 150 mg PO TID 07/04/15 Acetaminophen [Tylenol Extra Strength] 1,000 mg PO Q6HP PRN 01/27/17 Albuterol Inhaler [Ventolin Inhaler*] 2 puff IH Q6H PRN 01/27/17 Budesonide/Formoterol Fumarate [Symbicort 160-4.5 Mcg Inhaler] 1 puff IH BIDP PRN 01/27/17 Calcium Carbonate [Tums Regular*] 500 mg PO TID PRN 01/27/17 Duloxetine HCl 60 mg PO BEDTIME 01/27/17 Insulin Degludec [Tresiba Flextouch U-200] 44 units SQ DAILY 01/27/17 Oxycodone HCl 15 mg PO BEDTIME 01/27/17 Ropinirole HCl 2 mg PO DAILY 01/27/17 Rosuvastatin [Crestor*] 10 mg PO BEDTIME 01/27/17 Erythromycin Base [Ignacio-Tab] 250 mg PO ACHS #56 tablet. 05/06/20 New Medications: Erythromycin Base [Ignacio-Tab] 250 mg PO ACHS #56 tablet. Patient Discharge Instructions: OK TO DC IV AND DC HOME. FOLLOW-UP WITH PRIMARY CARE PROVIDER IN 1-2 WEEKS. FOLLOW-UP WITH GI IN 1-2 WEEKS-POSSIBLE EGD TO EVALUATE THE DUODENUM AND FOR GASTROPARESIS. FOLLOW-UP WITH OPHTHAMOLOGY IN 1-2 WEEKS. RETURN TO THE ER IF SYMPTOMS WORSEN. CALL or TEXT DR. GORDON AT [phone] IF ANY QUESTIONS REGARDING HOSPITAL STAY. PLEASE CALL THE FLOOR AT [phone] IF ANY MEDICATION OR NURSING QUESTIONS. Diet: ADA Activity: Fall precautions Time spent managing pt's care (in minutes): 35
== END 2020-05-06 20:00 | disposition home or self-care (01) | DRG 638 ==
LOC: ER 03:34 → ERHOLD 04:42 → 4TH 05-05 02:00
PROVIDERS: ADMIT Hospitalist; ATTEND Hospitalist
DX: E10.10 Type 1 diabetes mellitus with ketoacidosis without coma (principal); N17.9 Acute kidney failure, unspecified; I10 Essential (primary) hypertension; M54.9 Dorsalgia, unspecified; I27.20 Pulmonary hypertension, unspecified; G89.29 Other chronic pain; J44.9 Chronic obstructive pulmonary disease, unspecified; H53.2 Diplopia; E78.5 Hyperlipidemia, unspecified; E86.0 Dehydration; F17.210 Nicotine dependence, cigarettes, uncomplicated; R00.0 Tachycardia, unspecified; T38.3X6A Underdosing of insulin and oral hypoglycemic [antidiabetic] drugs, initial encounter; Z79.01 Long term (current) use of anticoagulants; Z79.899 Other long term (current) drug therapy; Z86.718 Personal history of other venous thrombosis and embolism; Z86.711 Personal history of pulmonary embolism; Z79.4 Long term (current) use of insulin; Z91.128 Patient's intentional underdosing of medication regimen for other reason; Z96.651 Presence of right artificial knee joint
CPT/HCPCS: 36415; 70450; 71045; 74177; 80048; 80053; 80061; 80076; 82010; 82805; 82947; 83690; 83735; 83880; 84100; 84484; 85025; 85610; 87040; 87086; 87088; 93005; 96361; 96365; 96375; 99285; J1815; J2405; J3475; J7030; J7042; J7050; J7799; Q9967

== ENCOUNTER 2021-10-10 09:42 | Emergency (ER) | payer OTHER ==
--- OUTSIDE RECORDS SUMMARY | 2021-10-10 09:46 | XMS REPORT | Continuity of Care Document ---
:1965 Author Organization [facility] t Address [address] Jamil [address] [place] [id number] Care Team Providers Name Role Phone Unavailable Unavailable Unavailable Problems This patient has no known problems. Allergies, Adverse Reactions, Alerts This patient has no known allergies or adverse reactions. Medications This patient has no known medications. Procedures This patient has no known procedures. Results This patient has no known results.
[2021-10-10 11:10] LABS: Absolute Lymphocytes (CBC) 2.9 K/uL (0.7-4.9); Lymphocytes % 46.7 % (15.3-44.8); MPV 8.8 fL (7.6-11.3); RBC Red Blood Cell Count 4.06 M/uL (3.86-4.86)
[2021-10-10] MEDS ORDERED: FENTANYL CITR 100 MCG/2 ML ONE ×2 (11:24→13:12)
[2021-10-10 11:35] LABS: Albumin 3.1 g/dL (3.4-5.0); Bilirubin Total 0.3 mg/dL (0.2-1.0); Potassium 4.9 mmol/L (3.5-5.1); Protein, Total 6.6 g/dL (6.4-8.2)
[2021-10-10] MEDS ORDERED: NA CHLORIDE 0.9% 1,000 ML ONE (11:55)
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
[2021-10-10] MEDS ORDERED: LIDOCAINE 4% PATCH ONE (13:12)
[2021-10-10 13:41] VITALS: TEMP 97.2
[2021-10-10 13:43] VITALS: O2SAT 99
[2021-10-10 13:44] VITALS: BP 152/93
== END 2021-10-10 13:25 | disposition home or self-care (01) ==
LOC: ER 09:42
DX: S16.1XXA Strain of muscle, fascia and tendon at neck level, initial encounter (principal); S80.02XA Contusion of left knee, initial encounter; S80.01XA Contusion of right knee, initial encounter; R10.32 Left lower quadrant pain; V49.40XA Driver injured in collision with unspecified motor vehicles in traffic accident, initial encounter; E11.9 Type 2 diabetes mellitus without complications; I10 Essential (primary) hypertension; F17.210 Nicotine dependence, cigarettes, uncomplicated
CPT/HCPCS: 85025; 36415; 80053; 70450; 72125; 74177; 99284; Q9967; J3010 ×2; J7030

== ENCOUNTER 2023-03-05 09:39 | Inpatient (IN) | payer OTHER ==
--- OUTSIDE RECORDS SUMMARY | 2023-03-05 10:11 | XMS REPORT | Continuity of Care Document ---
:1965 Author Organization [facility] t Address [address] [place] [address] Care Team Providers Name Role Phone Pcp, Patient Does Not Have A Primary Care Physician [id number] VIPUL PONCE Attending Clinician Unavailable [facility] Attending Clinician Unavailable Unknown, Attending Attending Clinician Unavailable Vipul Ponce MD Attending Clinician Harlan Butt Jr Attending Clinician Payers Payer Name Policy Type Policy Number Effective Date Expiration Date S ource [employer] CHOICE [id number] 2022 00:00:00 Problems Condition Condition Condition Status Onset Resolution Last Treating Co mments Source Name Details Category Date Date Treatment Clinician Date M54.12 - M54.12 - Diagnosis Active 2015-082016-05-30 Memoria "RADICULOP "RADICULOP 0-11 18:25:00 l ATHY, ATHY, 00:01: Epi CERVICAL CERVICAL 00 [facility] Active 05/21/2016 [facility] Lumbar Lumbar Problem Active 2016-06-02 Dominic sameera radiculopa radiculopa 01-30 00:59:34 l thy thy 00:00: Epi (disorder) (disorder) 00 Active 01/30/2015 Problem 06/02/2016 Data migrated from [employer] on 04/04/15. 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 [facility] Foot-drop Foot-drop Problem Active 2016-06-02 Memoria (finding) (finding) 01-30 00:59:34 l Active 00:00: Epi 01/30/2015 00 Problem 06/02/2016 Data migrated from [employer] on 04/04/15. [facility] Low back Low back Problem Active 2016-06-02 Memoria pain pain 01-30 00:59:34 l (disorder) (disorder) 00:00: He rmann Active 00 01/30/2015 Problem 06/02/2016 Data migrated from [employer] on 04/04/15. [facility] Allergies, Adverse Reactions, Alerts Allergy Allergy Status Severity Reaction(s) Onset Inactive Treating Comm ents Source Name Type Date Date Clinician NO KNOWN Drug Active [facility] ALLERGIE Class ity S [facility] Social History Social Habit Start Date Stop Date Quantity Comments Source Sexual orientation [facility] Gender identity [facility] Sex [facility]igned At [birth year] [facility] Branch Smoking Status Start Date Stop Date Source Tobacco smoking consumption [facility] Branch Medications This patient has no known medications. Vital Signs Vital Name Observation Time Observation Value Comments Source Systolic blood 2023-03-05 14:41:00 157 mm[Hg] [facility] Diastolic blood 2023-03-05 14:41:00 72 mm[Hg] [facility] Heart rate 2023-03-05 14:40:00 85 /min [facility] Body temperature 2023-03-05 14:40:00 36.44 [facility] Respiratory rate 2023-03-05 14:40:00 27 /min [facility] Oxygen saturation in 2023-03-05 14:40:00 96 /min [facility] Arterial blood by [facility] Pulse oximetry Branch Procedures This patient has no known procedures. Encounters Start End Encounter Admission Attending Care Care Encounter Source Date/Time Date/Time Type Type Clinicians Facility Department ID 2023-03-05 2023-03-05 Outpatient Yudith PONCE [facility] [id number] [facility] 09:00:00 09:35:00 VIPUL turk [facility] 2023-03-05 2023-03-05 Nurse Nurse, [facility] [id number] [facility] 09:00:00 09:35:00 Visit Unknown, Attending HEALTH [id number] ity of Vipul Ponce [place] [id number] [place] FAMILIA?BLEA [id number] [address] MEDICAL OFFICE BUILDING 2016-05-30 2016-05-31 Outpt Diag nullFlavo [facility] [address] [id number] Memoria 23:14:00 04:59:00 Services r Outpatient 02 [facility] 2016-05-30 2016-05-31 Outpt Diag nullFlavo [facility] [address] [id number] Memoria 23:14:00 04:59:00 Services r Outpatient 02 [facility] 2016-05-30 2016-05-30 Outpatient Filomena, [id number]. [id number] 18:14:00 23:59:00 Harlan Gene [id number] 5.30 2016-05-14 2016-05-15 Outpt Diag nullFlavo [facility] [address] [id number] Memoria 12:57:00 04:59:00 Services r Outpatient 01 [facility] 2016-05-14 2016-05-15 Outpt Diag nullFlavo [facility] [address] [id number] Memoria 12:57:00 04:59:00 Services r Outpatient 01 [facility] 2016-05-14 2016-05-14 Outpatient Filomena, [id number] 07:57:00 23:59:00 Harlan Gene [id number] 5.30 2015-01-11 2015-01-12 Outpt Diag nullFlavo [facility] [address] [id number] Memoria 22:11:00 04:59:00 Services r Outpatient 00 [facility] 2015-01-11 2015-01-12 Outpt Diag nullFlavo [facility] [address] [id number] Memoria 22:11:00 04:59:00 Services r Outpatient 00 l Imaging [facility] 2015-01-11 2015-01-11 Outpatient Filomena [id number] 17:11:00 23:59:00 Harlan Gene [id number] [id number] 5.0.101 01 Results This patient has no known results. Notes Date/Time Note Provider Source 2016-05-30 18:30:00-00:00 MRI CERVICAL SPINE WITHOUT CONTRAST [facility] TECHNIQUE: Multiplanar multi sequence imaging of the cervical spine was performed without administration of intravenous gadolinium. COMPARISON: No prior exam. FINDINGS: Multilevel disc [...] Thyroid ultrasound is recommended for further assessment. 2016-05-30 18:30:00-00:00 MRI CERVICAL SPINE WITHOUT CONTRAST [facility] TECHNIQUE: Multiplanar multi sequence imaging of the cervical spine was performed without administration of intravenous gadolinium. COMPARISON: No prior exam. FINDINGS: Multilevel disc [...] Thyroid ultrasound is recommended for further assessment. 2016-05-14 09:12:00-00:00 MRI of the spine without and with cont rast [facility] COMPARISON: 01/11/2015 MRI exam. TECHNIQUE: Sagittal T1, sagi ttal T2 with [...] Stable T11-T12 right paracentral disc osteophyte complex. 2016-05-14 09:12:00-00:00 MRI of the spine without and with cont rast [facility] COMPARISON: 01/11/2015 MRI exam. TECHNIQUE: Sagittal T1, sagi ttal T2 with [...]
[2023-03-05 10:23] LABS: Absolute Lymphocytes (CBC) 1.5 K/uL (0.7-4.9); Hematocrit 30.1 % (36.0-45.0); Lymphocytes % 14.9 % (15.3-44.8); MCV 88.2 fL (80-100); RBC Red Blood Cell Count 3.42 M/uL (3.86-4.86)
[2023-03-05 10:24] LABS: Protime INR 1.04
[2023-03-05 10:39] LABS: ALT/SGPT 15 U/L (13-56); AST/SGOT 14 U/L (15-37); Albumin 2.3 g/dL (3.4-5.0); Alkaline Phosphatase 119 U/L (45-117); BUN Blood Urea Nitrogen 22 mg/dL (7-18); Bicarbonate 25 mEq/L (21-32); Bilirubin Total 0.3 mg/dL (0.2-1.0); Glomerular Filtration Rate 43 ml/min (=/>90); Glucose Level 380 mg/dL (74-106); NT PRO-BNP 4523 pg/mL (<125); Potassium 5.4 mEq/L (3.5-5.1); Protein, Total 7.1 g/dL (6.4-8.2); Sodium Level 137 mEq/L (136-145); Troponin High Sensitivity 6.3 pg/mL (<58.9)
[2023-03-05 10:51] LABS: Bilirubin Direct < 0.1 mg/dL (0-0.2); Bilirubin Indirect, Calculated ND mg/dL (0.2-0.8)
--- NOTE | 2023-03-05 11:29 | RAD REPORT ---
EXAM DESCRIPTION: CT - Chest For Pe Angio - 03/05/2023 11:02 am CLINICAL HISTORY: Shortness breath COMPARISON: 1999 TECHNIQUE: Dynamically enhanced axial 3 mm thick images of the chest were obtained during administra tion of 100 mL Isovue 370 IV contrast. Coronal and oblique reconstruction images were generated and r eviewed. Exam utilizes a protocol for optimal evaluation of pulmonary arterial tree. Maximum intensity projections 3D imaging was utilized All CT scans are performed using dose optimization technique as appropriate and may include automated exposure control or mA/KV adjustment according to patient size. FINDINGS: A pulmonary embolus is not seen. A thoracic aortic aneurysm is not noted. A small left pleural effusion. No pericardial effusion. Mild left basilar atelectasis. Wall of the distal esophagus appears mildly thickened A 3 centimeter cyst left upper lobe IMPRESSION: Negative for a pulmonary embolism. Small left pleural effusion Wall of the distal esophagus appears mildly thickened which may indicate inflammation
--- NOTE | 2023-03-05 11:32 | RAD REPORT ---
EXAM DESCRIPTION: USExtrem Venous W Compress Bil03/05/2023 11:11 am CLINICAL HISTORY: Leg swelling COMPARISON: 2012 FINDINGS: The common femoral, superficial femoral, greater saphenous, popliteal and posterior tibial veins bilaterally are compressible and demonstrate augmentation. Doppler demonstrates good flow. Grayscale, color and spectral analysis performed on all vessels IMPRESSION: No evidence of deep venous thrombosis involving either lower extremity.
--- NOTE | 2023-03-05 11:33 | RAD REPORT ---
EXAM DESCRIPTION: Cathy Single View03/05/2023 10:08 am CLINICAL HISTORY: Shortness of breath COMPARISON: 2019 FINDINGS: Mild left lower lobe atelectasis. Small left pleural effusion There right lung appears clear. Heart is normal size
--- NOTE | 2023-03-05 11:38 | EDPHYS ---
Physician Documentation [facility] Name: Jada Navarro Age: 57 yrs Sex: Female : 1965 Arrival Date: 03/05/2023 Time: 09:39 Bed 19 Private MD: Perla Pena H ED Physician Chavez Chance HPI: 03/05 09:56 This 57 yrs old Female presents to ER via Unassigned with complaints of Shortness Of sp3 Breath, Leg Swelling, Altered Mental Status. 09:56 57-year-old female with history of diabetes, hypertension, prior DVT and pulmonary sp3 embolism not currently on anticoagulants now presents to the ED with chief complaint right lower extremity swelling, chest pain and mild shortness of breath. Patient has bilateral right greater than left plantar tran which are being treated with antibiotics by her PCP Dr. Ramesh. Symptoms have been occurring for the last 3 to 4 days and the been waxing and waning and steady in nature without any severe episodes. On review of systems, patient denies headache, neck pain, URI symptoms, cough, abdominal pain, nausea, vomiting, diarrhea, rash, known sick contacts, prolonged immobilization, travel history, or any other signs or symptoms at this time.. Historical: - Allergies: 09:54 No Known Allergies; aa5 - PMHx: 09:54 Diabetes - IDDM; DVT; e coli; Hypertension; pulmonary embolus; aa5 - Immunization history:: Adult Immunizations up to date. - Social history:: Smoking status: unknown. ROS: 09:57 Constitutional: Negative for fever, chills, and weight loss, Eyes: Negative for injury, sp3 pain, redness, and discharge, ENT: Negative for injury, pain, and discharge, Neck: Negative for injury, pain, and swelling, Abdomen/GI: Negative for abdominal pain, nausea, vomiting, diarrhea, and constipation, Back: Negative for injury and pain, : Negative for injury, bleeding, discharge, and swelling, Neuro: Negative for headache, weakness, numbness, tingling, and seizure, Psych: Negative for depression, anxiety, suicide ideation, homicidal ideation, and hallucinations, Allergy/Immunology: Negative for hives, rash, and allergies, Endocrine: Negative for neck swelling, polydipsia, polyuria, polyphagia, and marked weight changes. 09:57 All other systems are negative. Exam: 09:58 Constitutional: This is a well developed, well nourished patient who is awake, alert, sp3 and in no acute distress. Head/Face: Normocephalic, atraumatic. Eyes: Pupils equal round and reactive to light, extra-ocular motions intact. Lids and lashes normal. Conjunctiva and sclera are non-icteric and not injected. Cornea within normal limits. Periorbital areas with no swelling, redness, or edema. ENT: Nares patent. No nasal discharge, no septal abnormalities noted. External auditory canals are clear. Oropharynx with no redness, swelling, or masses, exudates, or evidence of obstruction, uvula midline. Mucous membranes moist. Neck: Trachea midline, no thyromegaly or masses palpated, and no cervical lymphadenopathy. Supple, full range of motion without nuchal rigidity, or vertebral point tenderness. No Meningismus. Chest/axilla: Normal chest wall appearance and motion. Nontender with no deformity. No lesions are appreciated. Cardiovascular: Regular rate and rhythm with a normal S1 and S2. No gallops, murmurs, or rubs. Normal PMI, no JVD. No pulse deficits. Respiratory: Lungs have equal breath sounds bilaterally, clear to auscultation and percussion. No rales, rhonchi or wheezes noted. No increased work of breathing, no retractions or nasal flaring. Abdomen/GI: Soft, non-tender, with normal bowel sounds. No distension or tympany. No guarding or rebound. No evidence of tenderness throughout. Neuro: Awake and alert, GCS 15, oriented to person, place, time, and situation. Cranial nerves II-XII grossly intact. Motor strength 5/5 in all extremities. Sensory grossly intact. Cerebellar exam normal. Normal gait. Psych: Awake, alert, with orientation to person, place and time. Behavior, mood, and affect are within normal limits. 09:58 Musculoskeletal/extremity: Mild swelling bilateral lower extremities nonpitting in nature. Circumference of bilateral lower extremities are roughly equal in size. Distal neurovascular exam is normal. Right lower extremity is wrapped in will evaluate once unwrapped.. 10:15 ECG was reviewed by the Attending Physician. EKG demonstrates normal sinus rhythm at 86 sp3 bpm with normal intervals, normal QRS, normal axis, normal ST/T-segment's without evidence of acute ischemia. Vital Signs: 09:44 BP 172 / 97; Pulse 85; Resp 16 S; Temp 98.2(O); Pulse Ox 96% on R/A; aa5 10:00 BP 164 / 83; Pulse 87; Resp 18; Pulse Ox 97% on R/A; eh3 12:00 BP 161 / 95; Pulse 92; Resp 18; Pulse Ox 100% on R/A; eh3 MDM: 09:56 Patient medically screened. sp3 09:59 Data reviewed: vital signs, nurses notes, old medical records, lab test result(s), EKG, sp3 radiologic studies. ED course: 57-year-old female with lower extremity swelling, shortness of breath. Differential diagnosis includes pulmonary embolism, DVT, acute coronary syndrome, pneumonia, bronchitis, pleurisy, among others. Will evaluate right lower plantar foot for possible cellulitis. Given her tran on bilateral lower extremities, there is an increased risk for DVT. Will obtain ultrasound venous lower extremity scans with compression bilaterally, CT scan of the chest with PE protocol, EKG and lab values. Disposition is pending work-up and patient course with possible admission.. 11:34 ED course: Laboratory values reviewed. BNP is elevated otherwise no significant sp3 abnormalities. Creatinine is mildly elevated. Will administer Lasix and admit patient for serial cardiac markers and cardiology evaluation.. 03/05 09:55 Order name: Basic Metabolic Panel; Complete Time: 11:33 3 03/05 09:55 Order name: CBC with Diff; Complete Time: 11:33 3 03/05 09:55 Order name: LFT's; Complete Time: 11:3 03/05 09:55 Order name: Magnesium; Complete Time: 11:3 03/05 09:55 Order name: NT PRO-BNP; Complete Time: 11:33 3 03/05 09:55 Order name: PT-INR; Complete Time: 11:3 03/05 09:55 Order name: Troponin HS; Complete Time: 11:3 03/05 12:40 Order name: Hemoglobin A1c; Complete Time: 17:57 EDMS 03/05 12:40 Order name: Lipid Profile; Complete Time: 17:57 EDMS 03/05 12:40 Order name: Phosphorus; Complete Time: 17:57 EDMS 03/05 12:40 Order name: T4 Free; Complete Time: 17:57 EDMS 03/05 12:40 Order name: Thyroid Stimulating Hormone; Complete Time: 17:57 EDMS 03/05 12:40 Order name: Urinalysis w/ reflexes EDTN 03/05 12:40 Order name: Basic Metabolic Panel EDTN 03/05 12:40 Order name: Basic Metabolic Panel [facility] 03/05 12:40 Order name: CBC with Automated Diff [facility] 03/05 12:40 Order name: CBC with Automated Diff [facility] 03/05 12:40 Order name: NT PRO-BNP EDTN 03/05 12:40 Order name: NT PRO-BNP [facility] 03/05 12:47 Order name: Magnesium; Complete Time: 17:57 EDTN 03/05 15:09 Order name: Glucose, Ancillary Testing; Complete Time: 17:57 [facility] 03/05 18:40 Order name: Glucose, Ancillary Testing [facility] 03/05 09:55 Order name: XRAY Chest (1 view); Complete Time: 17:57 [facility] 03/05 09:55 Order name: CT Chest For PE Angio; Complete Time: 11:33 03/05 09:55 Order name: US Extremity Venous W Compression Rohit; Complete Time: 11:33 3 03/05 12:40 Order name: Foot Right Wo Cont; Complete Time: 17:57 EDTN 03/05 13:41 Order name: CT; Complete Time: 17:57 [facility] 03/05 09:55 Order name: EKG; Complete Time: 09:56 [facility] 03/05 12:40 Order name: 60g Consistent Carbohydrate (ADA 1800/1999) [facility] 03/05 09:55 Order name: Cardiac monitoring; Complete Time: 10:04 03/05 09:55 Order name: EKG - Nurse/Tech; Complete Time: 10:15 3 03/05 09:55 Order name: IV Saline Lock; Complete Time: 10:04 03/05 09:55 Order name: Labs collected and sent; Complete Time: 10:04 03/05 09:55 Order name: O2 Per Protocol; Complete Time: 10:04 03/05 09:55 Order name: O2 Sat Monitoring; Complete Time: 10:04 sp3 Administered Medications: 12:05 Drug: Furosemide IVP 40 mg Route: IVP; Site: left antecubital; eh3 13:19 Follow up: Response: No adverse reaction eh3 Disposition Summary: 03/05/23 11:38 Hospitalization Ordered Hospitalization Status: Observation sp3 Location: Telemetry/MedSurg (observation) sp3 Condition: Stable sp3 Problem: an acute exacerbation sp3 Symptoms: have worsened sp3 Bed/Room Type: Standard sp3 Provider: Kenan Sue(03/05/23 11:51) sp3 Room Assignment: [facility](03/05/23 18:58) eb1 Diagnosis - CHF exacerbation, dyspnea sp3 Forms: - Medication Reconciliation Form sp3 - SBAR form sp3 Signatures: Dispatcher [employer] EDMS Mary Molina RN RN Yenny Dickerson FNP-Abbie ENVIRONMENTAL ENGINEER-So Alexis RN RN aa5 Sybil Wang RN RN eb1 Chavez Chance MD MD sp3 Zhanna Rosales RN RN eh3 Corrections: (The following items were deleted from the chart) 11:51 11:38 Shital Orozco sp3 sp3 12:45 12:40 Magnesium ordered. EDMS EDMS 18:15 11:38 sp3 dw 18:58 18:15 409 dw eb1
--- NOTE | 2023-03-05 11:38 | ER ---
Nurse's Notes [facility] Name: Jada Navarro Age: 57 yrs Sex: Female : 1965 Arrival Date: 03/05/2023 Time: 09:39 Bed 19 Private MD: Perla Pena H Diagnosis: CHF exacerbation, dyspnea Presentation: 03/05 09:44 Chief complaint: Patient states: "I started having trouble breathing last night, my aa5 stomach hurts, and my right leg is swollen". Pt also reports she walked barefoot on concrete and burned sole of feet, currently taking antibiotics for it per Dr. Pena (PCP). 09:44 Coronavirus screen: shortness of breath. Ebola Screen: Patient denies travel to an [facility] Ebola-affected area in the 21 days before illness onset. Initial Sepsis Screen: Does the patient meet any 2 criteria? No. Patient's initial sepsis screen is negative. Does the patient have a suspected source of infection? Yes:. Risk Assessment: Do you want to hurt yourself or someone else? Patient reports no desire to harm self or others. Onset of symptoms was March 04, 2023. 09:44 Acuity: LEE 3 aa5 09:44 Method Of Arrival: Wheelchair aa5 Triage Assessment: 10:00 General: Appears in no apparent distress. uncomfortable, Behavior is cooperative, eh3 anxious. Respiratory: Onset: The symptoms/episode began/occurred yesterday, the patient has moderate shortness of breath. Historical: - Allergies: 09:54 No Known Allergies; aa5 - PMHx: 09:54 Diabetes - IDDM; DVT; e coli; Hypertension; pulmonary embolus; aa5 - Immunization history:: Adult Immunizations up to date. - Social history:: Smoking status: unknown. Screenin:00 [facility] ED Fall Risk Assessment (Adult) Score/Fall Risk Level 0 - 2 = Low Risk. Abuse eh3 screen: Denies threats or abuse. Denies injuries from another. Nutritional screening: No deficits noted. Tuberculosis screening: No symptoms or risk factors identified. Assessment: 10:00 General: Appears in no apparent distress. uncomfortable, Behavior is cooperative, eh3 anxious. Pain: Complains of pain in chest, right leg and left leg. Neuro: Level of Consciousness is awake, alert, obeys commands, Oriented to person, place, time, situation. Cardiovascular: Capillary refill < 3 seconds Patient's skin is warm and dry. Rhythm is sinus rhythm. Cardiovascular: Pulses are all present. Edema is 2+ to left foot and right foot. Respiratory: Reports shortness of breath at rest Airway is patent Respiratory effort is even, unlabored, Respiratory pattern is regular, symmetrical, Breath sounds are clear bilaterally. GI: Abdomen is round non-distended. Derm: Skin is pink, warm \\T\\ dry. Musculoskeletal: Circulation, motion, and sensation intact. 10:45 Injury Description: Abrasion sustained to plantar aspect of left first toe Patient eh3 sustained third-degree burn(s) to plantar aspect of right first toe, ball of right foot and heel of right foot. 18:20 Reassessment: Failed attempt to call report to 4th floor, charge nurse states pt's eh3 nurse is busy discharging another pt and asked to hold on the phone, waited approximately 5 minutes and discontinued call due to need to care for ED patients. 18:35 Reassessment: Failed attempt to call report to 4th floor, asked to hold for nurse and eh3 waited approximately 5 minutes then discontinued call due to need to care for ED patients. 19:01 Reassessment: Nurse to nurse report received by Josue on 4th floor. eh3 Vital Signs: 09:44 BP 172 / 97; Pulse 85; Resp 16 S; Temp 98.2(O); Pulse Ox 96% on R/A; aa5 10:00 BP 164 / 83; Pulse 87; Resp 18; Pulse Ox 97% on R/A; eh3 12:00 BP 161 / 95; Pulse 92; Resp 18; Pulse Ox 100% on R/A; eh3 ED Course: 09:42 Patient arrived in ED. am2 09:42 Perla Pena DO is Private Physician. am2 09:44 Arm band placed on Patient placed in an exam room, on a stretcher. aa5 09:48 Chavez Chance MD is Attending Physician. sp3 09:52 Zhanna Rosales, FISH is Primary Nurse. eh3 09:57 Triage completed. aa5 10:00 Patient has correct armband on for positive identification. Placed in gown. Bed in low eh3 position. Call light in reach. Side rails up X2. Adult w/ patient. Provided Education on: N/A. Client placed on continuous cardiac and pulse oximetry monitoring. NIBP monitoring applied. Door closed. Noise minimized. Warm blanket given. 10:05 Inserted saline lock: 20 gauge in left antecubital area, using aseptic technique. Blood eh3 collected. 10:10 XRAY Chest (1 view) In Process Unspecified. EDMS 11:03 CT Chest For PE Angio In Process Unspecified. EDMS 11:12 US Extremity Venous W Compression Rohit In Process Unspecified. EDMS 11:37 Shital Orozco MD is Hospitalizing Provider. sp3 11:51 Kenan Sue is Hospitalizing Provider. sp3 19:01 No provider procedures requiring assistance completed. Patient admitted, IV remains in eh3 place. Administered Medications: 12:05 Drug: Furosemide IVP 40 mg Route: IVP; Site: left antecubital; eh3 13:19 Follow up: Response: No adverse reaction eh3 Medication: 19:02 VIS not applicable for this client. eh3 Outcome: 11:38 Decision to Hospitalize by Provider. sp3 19:02 Admitted to Tele accompanied by tech, family with patient, via wheelchair, room 407, eh3 Report called to Josue 19:02 Condition: stable eh3 19:31 Patient left the ED. eh3 Signatures: Dispatcher [employer] So Zuniga, RN RN jos5 Radha Fenton am2 Chavez Chance MD MD sp3 Zhanna Rosales RN RN eh3 Corrections: (The following items were deleted from the chart) 11:12 10:57 Injury Description: Abrasion sustained to plantar aspect of left first toe eh3 Patient sustained third-degree burn(s) to plantar aspect of right first toe, ball of right foot and heel of right foot. eh3
[2023-03-05] MEDS ORDERED: FUROSEMIDE 40 MG/4 ML VIAL ONE ×2 (12:12→18:05)
[2023-03-05] MEDS ORDERED: ACETAMINOPHEN 325 MG TABLET PO PRN (12:32)
[2023-03-05] MEDS ORDERED: ONDANSETRON 4 MG/2 ML VIAL IV PRN (12:37)
[2023-03-05] MEDS ORDERED: GLUCAGON 1 MG/VIAL IM PRN ×2 (12:40→12:42)
[2023-03-05] MEDS ORDERED: D50W 25 GM/50 ML SYRINGE IV PRN ×2 (12:40→12:42)
--- NOTE | 2023-03-05 12:54 | P.HP ---
Certification for Inpatient Patient admitted to: Inpatient With expected LOS: >2 Midnights Patient will require the following post-hospital care: None Practitioner: I am a practitioner with admitting privileges, knowledge of patient current condition, hospital course, and medical plan of care. Services: Services provided to patient in accordance with Admission requirements found in Title 42 Section 412.3 of the Code of Federal Regulations Patient History Date of Service: 03/05/23 History of Present Illness: Patient is a 57-year-old female with a past medical history significant for DM 2, DVT, hypertension, PE, anxiety disorder, depression, who presents with complaint of shortness of breath onset yesterday. Patient also reports abdominal pain located in the lower quadrants as well as chronic back pain. Patient rated back pain as 10/10 in severity and described pain as aching in quality. Patient noted with right foot wound sustained from walking barefoot in the concrete. Patient noted with swelling and redness to right foot. Patient also noted with healing wound on the left foot. Patient reported that she has been having pus drainage from the right great toe wound. Patient reported that she has been having diarrhea but has not had any episodes since being in the hospital. Patient reported associated signs and symptoms of weakness and fatigue. Patient denies any other signs and symptoms. Symptoms are aggravated or relieved by nothing. Patient decided to present to the hospital for medical evaluation. Allergies No Known Allergies Allergy (Verified 01/27/17 17:16) Home Medications: Insuln Asp Prt/Insulin Aspart [Novolog Mix 70-30 Vial] See Protocol SQ ACHS 10/04/12 Tizanidine [Zanaflex*] 4 mg PO BID 10/04/12 Rivaroxaban [Xarelto] 20 mg PO DAILY #30 tablet 10/10/12 LORazepam [Ativan*] 2 mg PO TID PRN 07/04/15 Montelukast [Singulair*] 10 mg PO BEDTIME 07/04/15 Pregabalin [Lyrica] 150 mg PO TID 07/04/15 ondansetron HCL [Zofran] 4 mg PO Q8HP PRN 07/04/15 Acetaminophen [Tylenol Extra Strength] 1,000 mg PO Q6HP PRN 01/27/17 Albuterol Inhaler [Ventolin Inhaler*] 2 puff IH Q6H PRN 06/19/17 Budesonide/Formoterol Fumarate [Symbicort 160-4.5 Mcg Inhaler] 1 puff IH BIDP PRN 01/27/17 Calcium Carbonate [Tums Regular*] 500 mg PO TID PRN 01/27/17 Duloxetine HCl 60 mg PO BEDTIME 01/27/17 Insulin Degludec [Tresiba Flextouch U-200] 44 units SQ DAILY 01/27/17 Oxycodone HCl 15 mg PO BEDTIME 01/27/17 Ropinirole HCl 2 mg PO DAILY 01/27/17 Rosuvastatin [Crestor*] 10 mg PO BEDTIME 01/27/17 Erythromycin Base [Ignacio-Tab] 250 mg PO ACHS #56 tablet. 05/06/20 - Past Medical/Surgical History Diabetic: Yes -: Depression with anxiety -: Severe pulmonary hypertension -: History of BILATERAL PE/DVT(RIGHT LEG) on chronic anticoagulation -: Chronic Back pain with DDD/DJD(BROKEN SACRUM) -: Tobacco abuse -: History of UTI -: History of Syncope -: Restless Leg Syndrome -: HTN -: RESTLESS LEG -: HTN -: Type 1 diabetes -: Back surgery -: Right knee replacement -: Left foot/ankle surgery Psychosocial/ Personal History: , 1 child, She no longer works. - Family History Father -: Hypertension Mother -: Diabetes - Social History Smoking Status: Current every day smoker Smoking therapy provided: Yes Patient receptive to therapy: Yes Alcohol use: No CD- Drugs: No Caffeine use: No Place of Residence: Home Review of Systems General: Weakness, Other (Fatigue) Eyes: Unremarkable ENT: Unremarkable Respiratory: Shortness of Breath Cardiovascular: Chest Pain Gastrointestinal: Abdominal Pain, Diarrhea Genitourinary: Unremarkable Musculoskeletal: Back Pain, Foot Pain, Other (Right foot swelling) Integumentary: Other (Right foot redness\wound) Neurological: Weakness Lymphatics: Unremarkable Physical Examination - Physical Exam General: Alert, In no apparent distress, Oriented x3, Cooperative, Mild distress HEENT: Atraumatic, PERRLA, Mucous membr. moist/pink, EOMI, Sclerae nonicteric Neck: Supple, 2+ carotid pulse no bruit, No LAD, Without JVD or thyroid abnormality Respiratory: Diminished Cardiovascular: Regular rate/rhythm, Normal S1 S2, Edema Capillary refill: <2 Seconds Gastrointestinal: Normal bowel sounds, Non-distended, No tenderness Musculoskeletal: No clubbing, Swelling, Tenderness Integumentary: No rashes, Tenderness/swelling, Erythema, Other (Right foot wound) Neurological: Normal speech, Normal tone, Normal affect Lymphatics: No axilla or inguinal lymphadenopathy - Studies Laboratory Data (last 24 hrs) 03/05/23 10:13: Magnesium Cancelled 03/05/23 10:13: PT 11.4, INR 1.04 03/05/23 10:13: WBC 9.90, Hgb 9.9 L, Hct 30.1 L, Plt Count 451 H 03/05/23 10:13: Sodium 137, Potassium 5.4 H, BUN 22 H, Creatinine 1.41 H, Glucose 380 H, Magnesium 2.0, Total Bilirubin 0.3, AST 14 L, ALT 15, Alkaline Phosphatase 119 H Assessment and Plan - Plan --Suspected acute on chronic systolic or diastolic CHF. BNP--4523. Chest x- ray indicates Mild left lower lobe atelectasis. Small left pleural effusion. Echocardiogram pending for assessment of cardiac structures and functions. Continue diuresis with Lasix. Daily weight and strict I/O. Continue supportive care. --Right foot cellulitis\wound. Patient noted with wound on the plantar aspect of right foot. Wound care consult initiated. Doppler negative for right lower extremity DVT. Patient placed on antibiotics. Blood and wound cultures pending. Continue supportive care. --Abdominal pain. CT abdomen unremarkable for any acute intra-abdominal abnormality. We will manage pain with current pain medication regimen. --DM2 with hyperglycemia. BS monitoring with sliding scale insulin, pre-meal and long-acting insulin. -- History of PE\DVT. Continue Xarelto. -- Hypertension. Poorly controlled. Continue home medications and hydralazine as needed. --Esophagitis. CT imaging indicates Wall of the distal esophagus appears mildly thickened which may indicate inflammation. Patient placed on Protonix. --Anxiety disorder\depression. Continue home medications. --Hyperlipidemia. Continue statin. --RLS. Continue Ropinirole. --Diabetic neuropathy. Continue Lyrica. --Hyperkalemia. Patient given Lokelma x1 dose. Will reassess levels in a.m. --CKD 3A. Stable. We will continue to monitor renal functions. --Anemia of chronic disease. H&H stable. We will continue to monitor hemoglobin and transfuse if less than 7.0. --DVT prophylaxis with Xarelto. Discharge Plan: Home Plan to discharge in: Greater than 2 days - Advance Directives Does patient have a Living Will: No Does patient have a Durable POA for Healthcare: No - Code Status/Comfort Care Code Status Assessed: Yes Code Status: Full Code Physician Review: Patient Assessed, Agree with Above Assessment and Plan Critical Care: No
[2023-03-05 13:09] LABS: Phosphorus 3.3 mg/dL (2.5-4.9); Thyroid Stimulating Hormone 0.781 uIU/mL (0.358-3.740)
[2023-03-05] MEDS ORDERED: SODIUM ZIRCONIUM CYCLOSILICATE 10 GM/PKT PO ONE (13:30)
[2023-03-05] MEDS ORDERED: HYDROCODONE/APAP 10/325 TAB ONE (13:38)
--- NOTE | 2023-03-05 13:41 | RAD REPORT ---
EXAM DESCRIPTION: CT - Abdomen Pelvis Wo Contrast - 03/05/2023 1:17 pm CLINICAL HISTORY: Abdominal pain. Abdominal pain COMPARISON: Abdomen Pelvis W Contrast dated 10/10/2021 TECHNIQUE: CT imaging of the abdomen and pelvis was performed without contrast. Solid organ, bowel a nd vascular assessment is limited due to lack of IV and oral contrast. All CT scans are performed using dose optimization technique as appropriate and may include automated exposure control or mA/KV adjustment according to patient size. FINDINGS: The lower lung dickens are clear.Small hiatal hernia. Small left pleural effusion. The liver, spleen, pancreas, adrenal glands and kidneys are within normal limits for a limited non-co ntrast examination. No bowel obstruction, free air, free fluid or abscess. The appendix is not identified as a discrete structure, however, no secondary findings of appendicitis are identified. Mild lumbar degenerative changes. IMPRESSION: No acute intra-abdominal or pelvic findings. Small left pleural effusion. A limited non-contrast examination was performed as detailed.
[2023-03-05] MEDS: LORazepam 2 MG/ML VIAL IV PRN (13:42)
[2023-03-05] MEDS: HYDROCODONE/APAP 10/325 TAB PO PRN ×2 (13:42→21:01)
[2023-03-05] MEDS ORDERED: LORazepam 2 MG/ML VIAL ONE (13:43)
[2023-03-05] MEDS: INSULIN -REGULAR HUMAN 50 UNIT/0.5 ML ML IV SCH ×2 (14:00→21:00)
[2023-03-05] MEDS ORDERED: D10W 125 ML IV PRN (14:08)
[2023-03-05] MEDS ORDERED: INSULIN -REGULAR HUMAN 50 UNIT/0.5 ML ML ONE (15:17)
[2023-03-05] MEDS ORDERED: SODIUM CHLORIDE 0.9% 10ML INJ IV PRN (15:36)
[2023-03-05] MEDS: PANTOPRAZOLE 40 MG INJ IVP SCH (16:00)
[2023-03-05] MEDS: INSULIN -REGULAR HUMAN 50 UNIT/0.5 ML ML SQ SCH ×2 (16:30→21:03)
[2023-03-05] MEDS: FUROSEMIDE 40 MG/4 ML VIAL IV SCH (17:00)
[2023-03-05] MEDS: PIPER TAZO 3.375 GM in NA CHLORIDE 0.9% 100 ML IV SCH (17:00)
--- NOTE | 2023-03-05 17:32 | RAD REPORT ---
EXAM DESCRIPTION: MRI - Foot Right Wo Cont - 03/05/2023 5:21 pm CLINICAL HISTORY: osteomyelitis Pain and swelling COMPARISON: Foot Right Wo Cont dated 02/29/2016 FINDINGS: The Achilles tendon is intact. Plantar fascia is not abnormally thickened. Small calcaneal spurs. Soft tissues surrounding the great toe are mildly thickened. No underlying evidence of osteomyelitis is seen. Mild edema is present along the lateral margin of the foot and ankle. . IMPRESSION: No finding suspicious for osteomyelitis.
[2023-03-05] MEDS ORDERED: HYDRALAZINE HCL 20 MG/ML VIAL IV PRN (17:53)
[2023-03-05] MEDS ORDERED: PANTOPRAZOLE 40 MG INJ ONE (18:05)
[2023-03-05] MEDS ORDERED: PIPERACIL/TAZO 3.375 GM VIAL IV ONE (18:06)
[2023-03-05] MEDS ORDERED: NA CHLORIDE 0.9% 100 ML ONE (18:06)
[2023-03-05 18:19] VITALS: BMI 27.8
[2023-03-05] MEDS ORDERED: ROSUVASTATIN 10 MG TAB PO SCH (21:00)
[2023-03-05] MEDS: PREGABALIN 150 MG CAP PO SCH (21:01)
[2023-03-05] MEDS: METOPROLOL TAR 50 MG TAB PO SCH (21:02)
[2023-03-05] MEDS: DULOXETINE 30 MG CAP PO SCH (21:03)
[2023-03-05] MEDS: LORAZEPAM 1 MG TABLET PO SCH (21:04)
[2023-03-05] MEDS ORDERED: INSULIN GLARGINE 100 UNIT/ML SQ SCH (22:00)
[2023-03-06] MEDS: PIPER TAZO 3.375 GM in NA CHLORIDE 0.9% 100 ML IV SCH ×2 (00:13→09:14)
[2023-03-06] MEDS: INSULIN -REGULAR HUMAN 50 UNIT/0.5 ML ML SQ SCH ×3 (00:14→12:12)
[2023-03-06] MEDS: HYDROCODONE/APAP 10/325 TAB PO PRN ×2 (02:49→09:04)
[2023-03-06] MEDS: LORazepam 2 MG/ML VIAL IV PRN (02:50)
[2023-03-06 04:29] VITALS: O2SAT 93
[2023-03-06 06:30] LABS: Absolute Lymphocytes (CBC) 2.6 K/uL (0.7-4.9); Hematocrit 26.5 % (36.0-45.0); Lymphocytes % 31.1 % (15.3-44.8); MCV 86.3 fL (80-100); MPV 7.8 fL (7.6-11.3); RBC Red Blood Cell Count 3.07 M/uL (3.86-4.86)
[2023-03-06 06:52] LABS: Potassium 4.1 mEq/L (3.5-5.1)
[2023-03-06 07:39] LABS: Specific Gravity 1.022 (1.005-1.030); Urine Bacteria None Seen /HPF (<20); Urine Bilirubin NEGATIVE (Negative); Urine Blood Negative (Negative); Urine Clarity Clear (Clear); Urine Color Colorless (Yellow); Urine Glucose 2+ (Negative); Urine Protein 1+ (Negative); Urine RBC <5 /HPF (None Seen); Urine Urobilinogen Normal (Normal)
[2023-03-06] MEDS ORDERED: NA CHLORIDE 0.9% 100 ML ONE (08:11)
[2023-03-06] MEDS ORDERED: HOME MED 1 EA UNK (Insulin Degludec [Tresiba Flextouch U-200] 200 UNIT/ML Insuln.Pen) SQ SCH (09:00)
[2023-03-06] MEDS ORDERED: ASPIRIN 81 MG CHEWABLE TABLET PO SCH (09:00)
[2023-03-06] MEDS ORDERED: RIVAROXABAN 20 MG TABLET PO SCH (09:00)
[2023-03-06] MEDS ORDERED: NICOTINE 21 MG/PAT TD SCH (09:00)
[2023-03-06] MEDS: FUROSEMIDE 40 MG/4 ML VIAL IV SCH (09:03)
[2023-03-06] MEDS: PANTOPRAZOLE 40 MG INJ IVP SCH (09:03)
[2023-03-06] MEDS: METOPROLOL TAR 50 MG TAB PO SCH (09:04)
[2023-03-06] MEDS: PREGABALIN 150 MG CAP PO SCH ×2 (09:04→14:09)
[2023-03-06] MEDS: DULOXETINE 30 MG CAP PO SCH (09:05)
[2023-03-06] MEDS: LORAZEPAM 1 MG TABLET PO SCH (09:05)
[2023-03-06 09:06] VITALS: BP 131/67
[2023-03-06 09:10] VITALS: TEMP 98.4
[2023-03-06] MEDS ORDERED: PIPERACIL/TAZO 3.375 GM VIAL IV ONE (09:21)
--- NOTE | 2023-03-06 13:22 | EKG ---
Test Date: 2023-03-05 Test Time: 10:10:28 Senior Software Test Engineer: ROSALINA MEASUREMENT RESULTS: Intervals: Rate: 86 WV: 182 QRSD: 96 QT: 390 QTc: 466 [place]: P: 73 WV: 182 QRS: 95 T: 90 INTERPRETIVE STATEMENTS: Normal sinus rhythm Anteroseptal infarct, age undetermined Abnormal ECG Compared to ECG 05/03/2020 03:45:21 Sinus tachycardia no longer present Incomplete right bundle-branch block no longer present Myocardial infarct finding still present Electronically Signed On 03-06-23 13:20:07 CDT by Danny Arroyo
--- NOTE | 2023-03-06 13:37 | P.DS ---
Admission Date: 03/05/23 Discharge Date: 03/06/23 Disposition: ROUTINE DISCHARGE Discharge Condition: FAIR Brief History of Present Illness: Patient is a 57-year-old female with a past medical history significant for DM 2, DVT, hypertension, PE, anxiety disorder, depression, who presented with complaint of shortness of breath onset yesterday. Patient also reported abdominal pain located in the lower quadrants as well as chronic back pain. Patient rated back pain as 10/10 in severity and described pain as aching in quality. Patient noted right foot wound sustained wound from walking barefoot on concrete. Patient noted with swelling and redness to right foot. Patient also noted with healing wound on the left foot. Patient reported that she has been having pus drainage from the right great toe wound. Patient reported associated signs and symptoms of weakness and fatigue. BNP elevated. Patient was hospitalized for further evaluation and management. Hospital Course: Diagnosis Right foot wound DM type 2 Hyperlipidemia History of PE and DVT Hyperkalemia Patient was given a dose of Lasix. Wound care saw and evaluated her wound and case discussed with Dr. Gamble who recommended wound dressing with Medihoney. He was given a dose of Veltassa for hyperkalemia. Patient is currently asymptomatic with stable vitals. Vital Signs/Physical Exam: Temp Pulse Resp BP Pulse Ox 98.4 F 81 18 131/67 93 03/06/23 08:00 03/06/23 09:04 03/06/23 10:04 03/06/23 09:04 03/06/23 10:04 General: Alert, In no apparent distress, Oriented x3 HEENT: Mucous membr. moist/pink Neck: JVD not distended Respiratory: Clear to auscultation bilaterally, Normal air movement Cardiovascular: No edema, Regular rate/rhythm, Normal S1 S2 Gastrointestinal: Normal bowel sounds, Soft and benign, Non-distended Musculoskeletal: No swelling Neurological: Normal strength at 5/5 x4 extr Laboratory Data at Discharge: WBC 8.20 thou/uL (4.3-10.9) 03/06/23 05:37 Hgb 8.9 g/dL (12.0-15.0) L D 03/06/23 05:37 Hct 26.5 % (36.0-45.0) L 03/06/23 05:37 Plt Count 424 thou/uL (152-406) H 03/06/23 05:37 PT 11.4 SECONDS (9.5-12.5) 03/05/23 10:13 INR 1.04 03/05/23 10:13 Sodium 141 mEq/L (136-145) 03/06/23 05:37 Potassium 4.1 mEq/L (3.5-5.1) D 03/06/23 05:37 BUN 27 mg/dL (7-18) H 03/06/23 05:37 Creatinine 1.71 mg/dL (0.55-1.02) H 03/06/23 05:37 Glucose 83 mg/dL (74-106) 03/06/23 05:37 Phosphorus 3.3 mg/dL (2.5-4.9) 03/05/23 10:13 Magnesium 2.0 mg/dL (1.6-2.4) 03/05/23 10:13 Magnesium 2.0 mg/dL (1.6-2.4) 03/05/23 10:13 Magnesium Cancelled 03/05/23 10:13 Total Bilirubin 0.3 mg/dL (0.2-1.0) 03/05/23 10:13 AST 14 U/L (15-37) L 03/05/23 10:13 ALT 15 U/L (13-56) 03/05/23 10:13 Alkaline Phosphatase 119 U/L (45-117) H 03/05/23 10:13 Triglycerides 161 mg/dL (<150) H 03/05/23 10:13 Cholesterol 189 mg/dL (<200) 03/05/23 10:13 HDL Cholesterol 38 mg/dL (40-60) L 03/05/23 10:13 Cholesterol/HDL Ratio 4.97 03/05/23 10:13 Home Medications: Rivaroxaban [Xarelto] 20 mg PO DAILY #30 tablet 10/10/12 LORazepam [Ativan*] 2 mg PO BID 07/04/15 Pregabalin [Lyrica] 150 mg PO TID 07/04/15 ondansetron HCL [Zofran] 4 mg PO Q8HP PRN 07/04/15 Duloxetine HCl 60 mg PO BID 01/27/17 Rosuvastatin [Crestor*] 10 mg PO BEDTIME 01/27/17 Hydrocodone Bit/Acetaminophen [Hydrocodon-Acetaminophn 10-325] 1 each PO Q6H 03/05/23 Metoprolol Tartrate 100 mg PO BID 03/05/23 Amox/Clavulanate [Augmentin 875-125 Tab*] 875 mg PO BID #14 tab 03/06/23 Medihoney [Medihoney Woundcare Gel*] 1 appl TOP DAILY #1 tube 03/06/23 New Medications: Amox/Clavulanate [Augmentin 875-125 Tab*] 875 mg PO BID #14 tab Medihoney [Medihoney Woundcare Gel*] 1 appl TOP DAILY #1 tube Diet: [facility] Followup: Becky SUMMERS,Perla Villalobos DO [Primary Care Provider] - 1-2 Weeks (Call for appointment.) Matt Gamble MD [ACTIVE - CAN ADMIT] - 1-2 Weeks (call for appointment ) Time spent managing pt's care (in minutes): 33
[2023-03-06] MEDS ORDERED: AMOX/K CLAV 875 MG TAB PO SCH (21:00)
--- NOTE | 2023-03-07 06:53 | ECHO ---
HEIGHT: 5 ft 10 in WEIGHT: 194 lb 0 oz DATE OF STUDY: 03/06/[address]: Crystal Billingsley 2-DIMENSIONAL: YES M.MODE: YES DOPPLER: YES COLOR FLOW: YES TDS: PORTABLE: YES DEFINITY: BUBBLE STUDY: DIAGNOSIS: SUSPECTED CONGESTIVE HEART FAILURE CARDIAC HISTORY: CATHERIZATION: NO SURGERY: NO PROSTHETIC VALVE: NO PACEMAKER: NO MEASUREMENTS (cm) DIASTOLIC (NORMALS) SYSTOLIC (NORMALS) IVSd 0.9 (0.6-1.2) LA Diam 3.0 (1.9-4.0) LVEF 69% LVIDd 4.3 (3.5-5.7) LVIDs 2.7 (2.0-3.5) %FS 38% LVPWd 1.2 (0.6-1.2) Ao Diam 2.5 (2.0-3.7) 2 DIMENSIONAL ASSESSMENT: RIGHT ATRIUM: NORMAL LEFT ATRIUM: NORMAL RIGHT VENTRICLE: NORMAL LEFT VENTRICLE: NORMAL TRICUSPID VALVE: MILD TRICUSPID REGURGITATION MITRAL VALVE: MILD MITRAL REGURGITATION PULMONIC VALVE: NORMAL AORTIC VALVE: NORMAL PERICARDIAL EFFUSION: NONE AORTIC ROOT: NORMAL LEFT VENTRICULAR WALL MOTION: NORMAL DOPPLER/COLOR FLOW: MILD MITRAL REGURGITATION, MILD TRICUSPID REGURGITATION COMMENTS: 1. NORMAL LEFT VENTRICULAR EJECTION FRACTION 55-60% WITH NORMAL WALL MOTION 2. NORMAL DIASTOLIC FUNCTION 3. MILD TRICUSPID REGURGITATION 4. MILD MITRAL REGURGITATION 5. RIGHT VENTRICULAR SYSTOLIC PRESSURE IS 30-35 mmHg TECHNOLOGIST: TEVIN CANTU
[2023-03-07] MEDS ORDERED: MEDIHONEY 44 ML TOPICAL TUBE TOP SCH (09:00)
== END 2023-03-06 14:47 | disposition home or self-care (01) | DRG 291 ==
LOC: ER 09:39 → ERHOLD 12:31 → 4TH 18:35
PROVIDERS: ADMIT Internal Medicine; ATTEND Internal Medicine
DX: I13.0 Hypertensive heart and chronic kidney disease with heart failure and stage 1 through stage 4 chronic kidney disease, or unspecified chronic kidney disease (principal); I50.33 Acute on chronic diastolic (congestive) heart failure; L03.115 Cellulitis of right lower limb; N18.31 Chronic kidney disease, stage 3a; E11.22 Type 2 diabetes mellitus with diabetic chronic kidney disease; E11.65 Type 2 diabetes mellitus with hyperglycemia; E11.40 Type 2 diabetes mellitus with diabetic neuropathy, unspecified; D63.1 Anemia in chronic kidney disease; D63.8 Anemia in other chronic diseases classified elsewhere; E87.5 Hyperkalemia; K20.90 Esophagitis, unspecified without bleeding; F41.9 Anxiety disorder, unspecified; F32.A Depression, unspecified; G89.29 Other chronic pain; G25.81 Restless legs syndrome; M54.9 Dorsalgia, unspecified; F17.200 Nicotine dependence, unspecified, uncomplicated; Z79.4 Long term (current) use of insulin; Z79.01 Long term (current) use of anticoagulants; Z79.899 Other long term (current) drug therapy; Z86.711 Personal history of pulmonary embolism; Z86.718 Personal history of other venous thrombosis and embolism; Z96.651 Presence of right artificial knee joint
CPT/HCPCS: 36415; 71045; 71275; 74176; 80048; 80061; 80076; 81001; 82947; 83036; 83735; 83880; 84100; 84439; 84443; 84484; 85025; 85610; 87040; 93005; 93306; 93970; 96374; 99285; C9113; J0360; J1815; J1940; J2543; Q9967